=== PATIENT | male | born 1970 | race Two or more races ===

== ENCOUNTER 2020-04-23 06:18 | Outpatient (REF) | payer OTHER, SELFPAY ==
[2020-04-23 11:50] LABS: Estimated Average Glucose 192 mg/dL; Hemoglobin A1c % 8.3 %
[2020-04-23 12:07] LABS: Alanine Aminotransferase 18 U/L (0-40); Anion Gap 14 (12-20); Aspartate Amino Transferase 14 U/L (5-37); Blood Urea Nitrogen 13 mg/dL (9-16); Calcium 9.4 mg/dL (8.4-10.2); Carbon Dioxide 26 mmol/L (22-29); Chloride 105 mmol/L (96-108); Cholesterol 175 mg/dL; Estimated Glomerular Filt Rate > 60; Glucose Fasting 182 mg/dL (60-99); HDL Cholesterol 32 mg/dL; LDL Cholesterol Calculated 111 mg/dl; Potassium 4.8 mmol/l (3.3-5.1); Sodium 140 mmol/L (135-145); Triglycerides 160 mg/dL
== END 2020-04-23 06:19 | disposition home or self-care (01) ==
LOC: HO.HMGCLDS 06:18
PROVIDERS: PCP Internal Medicine; Visit Provider Internal Medicine
DX: E11.29 Type 2 diabetes mellitus with other diabetic kidney complication (principal); R80.9 Proteinuria, unspecified; Z79.4 Long term (current) use of insulin
CPT/HCPCS: 80048; 80061; 83036; 84450; 84460

== ENCOUNTER → 2020-05-22 13:23 | Outpatient (BNVA) | payer OTHER, SELFPAY | PROVIDERS: Visit Provider Nurse Practitioner Family | DX: Z76.89 Persons encountering health services in other specified circumstances (principal) ==

== ENCOUNTER 2020-07-31 05:59 | Outpatient (REF) | payer OTHER, SELFPAY ==
[2020-07-31 11:43] LABS: Estimated Average Glucose 283 mg/dL; Hemoglobin A1c % 11.5 %
[2020-07-31 11:51] LABS: Alanine Aminotransferase 14 U/L (0-40); Albumin Level 4.7 g/dL (3.5-5.0); Alkaline Phosphatase 118 U/L (39-117); Anion Gap 16 (12-20); Aspartate Amino Transferase 12 U/L (5-37); Bilirubin Direct 0.2 mg/dL (0.0-0.5); Bilirubin Total 0.6 mg/dL (0.0-1.0); Blood Urea Nitrogen 12 mg/dL (9-16); Calcium 9.6 mg/dL (8.4-10.2); Carbon Dioxide 25 mmol/L (22-29); Chloride 100 mmol/L (96-108); Cholesterol 194 mg/dL; Estimated Glomerular Filt Rate > 60; Glucose Fasting 269 mg/dL (60-99); HDL Cholesterol 29 mg/dL; LDL Cholesterol Calculated 117 mg/dl; Potassium 4.6 mmol/L (3.3-5.1); Sodium 136 mmol/L (135-145); Total Protein 7.9 g/dL (6.5-8.0); Triglycerides 242 mg/dL
[2020-07-31 12:11] LABS: PSA,Total (Free>4and<10) 1.19 ng/mL (0.00-4.00)
[2020-07-31 12:31] LABS: Creatinine Urine 111.52 mg/dL; Microalbum/Creatinine Ratio Ur 177.5 ug/mg cr
== END 2020-07-31 06:00 | disposition home or self-care (01) ==
LOC: HO.HMGCLDS 05:59
PROVIDERS: PCP Internal Medicine; Referring Provider Nurse Practitioner Family; Visit Provider Internal Medicine
DX: I10 Essential (primary) hypertension (principal); E78.2 Mixed hyperlipidemia; E11.29 Type 2 diabetes mellitus with other diabetic kidney complication; E11.65 Type 2 diabetes mellitus with hyperglycemia; Z79.4 Long term (current) use of insulin; Z12.5 Encounter for screening for malignant neoplasm of prostate
CPT/HCPCS: 36415; 80048; 80061; 80076; 82043; 83036; 84153

== ENCOUNTER 2020-08-14 09:24 | Day surgery (SDC) | payer OTHER, SELFPAY ==
--- NOTE | 2020-08-13 10:35 | HO.ANESPROP2 ---
Documented by User: Isauraher Trammellney 08/13/20 10:38 HPI - Anesthesia Eval Consult details Narrative: 50yo M for Colonoscopy PMFSH Active Problems Active Problems: All Active Problems (Updated 08/09/20 @ 14:17 by Jacey Israel) Exposure to COVID-19 virus (Acute) Mixed dyslipidemia (Acute) Type 2 diabetes mellitus with other diabetic kidney complication (Acute) Diabetes mellitus with hyperglycemia, with long-term current use of insulin (Acute) Essential hypertension (Acute) Past Medical History Medical History Diabetes mellitus with hyperglycemia, with long-term current use of insulin Essential hypertension Exposure to COVID-19 virus Mixed dyslipidemia Type 2 diabetes mellitus with other diabetic kidney complication Family History Family History Father No problems noted. Mother No problems noted. Paternal Grandfather Colon cancer Paternal Aunt Colon cancer Diabetes mellitus Brother No problems noted. Brother No problems noted. Sister No problems noted. Sister No problems noted. Sister No problems noted. Surgical History Surgical History Abdominal hernia History of nasal surgery Social History Social History Alcohol intake: never Smoking Status: Current every day smoker Tobacco Type: Cigarette Packs Per Day: 0.5 Cigarettes Per Day: 10.0 Years Smoked: 26 Smoked in Last 30 Days: Yes Patient Interested in Nicotine Replacement: Yes Patient Given Instructions on How to Stop Smoking: No Second Hand Smoke Exposure: Yes Use of substances other than those prescribed or required for medical reasons: No Advance Directives: No Advance Directives Information Provided: Yes Meds Allergies Allergy/AdvReac Type Severity Reaction Status Date / Time No Known Allergies Allergy Unknown Verified 08/07/20 10:23 [No Known Allergies*] Home Medications Medication Instructions Recorded Confirmed Last Taken Type aspirin 81 mg tablet,delayed 81 mg PO DAILY 04/24/20 08/09/20 Unknown History release flu vac [id number] 36mos up(PF) ml IM 04/24/20 04/24/20 Unknown History glipizide 10 mg tablet 10 mg PO ONCE tab 04/24/20 08/09/20 Unknown History lisinopril 10 mg tablet 10 mg PO DAILY 04/24/20 08/09/20 Unknown History pen needle, diabetic 32 gauge x #50 ea 04/24/20 04/24/20 Unknown History Exam Exam Date and Time: August 13, 2020 1035 Pertinent Lab Results Pertinent Lab Results: Laboratory Tests 07/31/20 06:11 Sodium 136 Potassium 4.6 Chloride 100 Carbon Dioxide 25 BUN 12 Creatinine 0.76 Assessment and Plan Assessment Anesthesia Assessment: Chart Reviewed Documented by User: Nadine Love 08/14/20 11:31 [facility] Past Medical History Medical History Diabetes mellitus with hyperglycemia, with long-term current use of insulin Essential hypertension Exposure to COVID-19 virus Mixed dyslipidemia Type 2 diabetes mellitus with other diabetic kidney complication Family History Family History Father No problems noted. Mother No problems noted. Paternal Grandfather Colon cancer Paternal Aunt Colon cancer Diabetes mellitus Brother No problems noted. Brother No problems noted. Sister No problems noted. Sister No problems noted. Sister No problems noted. Surgical History Surgical History Abdominal hernia History of nasal surgery Social History Social History Alcohol intake: never Smoking Status: Current every day smoker Tobacco Type: Cigarette Packs Per Day: 0.5 Cigarettes Per Day: 10.0 Years Smoked: 26 Smoked in Last 30 Days: Yes Patient Interested in Nicotine Replacement: Yes Patient Given Instructions on How to Stop Smoking: No Second Hand Smoke Exposure: Yes Use of substances other than those prescribed or required for medical reasons: No Advance Directives: No Advance Directives Information Provided: Yes Meds Allergies Allergy/AdvReac Type Severity Reaction Status Date / Time No Known Allergies Allergy Unknown Verified 08/07/20 10:23 [No Known Allergies*] Home Medications Medication Instructions Recorded Confirmed Last Taken Type aspirin 81 mg tablet,delayed 81 mg PO DAILY 04/24/20 08/09/20 Unknown History release flu vac [id number] 36mos up(PF) ml IM 04/24/20 04/24/20 Unknown History glipizide 10 mg tablet 10 mg PO ONCE tab 04/24/20 08/09/20 Unknown History lisinopril 10 mg tablet 10 mg PO DAILY 04/24/20 08/09/20 Unknown History pen needle, diabetic 32 gauge x #50 ea 04/24/20 04/24/20 Unknown History Exam Airway Mallampati Class: II TM Dist: >3cm Neck ROM: Full Heart: RRR Lungs: CTA
[2020-08-14 10:08] VITALS: BMI 25.8
[2020-08-14 10:22] VITALS: BP 139/85; PULSE 93; RESP 18; TEMP 36.2; O2SAT 97; BMI 25.8
[2020-08-14 10:28] LABS: Glucose, Whole Blood 244 mg/dL (60-115)
[2020-08-14] MEDS: Lactated Ringers 1,000 ML 100 ML IVCONT (10:38)
--- NOTE | 2020-08-14 10:39 | PC.NURSE ---
Breath sounds clear bilaterally
[2020-08-14] MEDS: Insulin Regular, Human 100 UNIT/ML 3 ML VIAL 6 UNIT SUBCUT (11:35)
--- NOTE | 2020-08-14 11:42 | MHC.SHP ---
Pre-Procedural Eval Section B Chief Complaint: screening Relevant Family History (Specify if Yes): No Relevant Social History: Tobacco Use Present Medications: see Short Stay Collaborative assessment Medical History: Significant History (Diabetes mellitus with hyperglycemia, with long-term current use of insulin Essential hypertension Exposure to COVID-19 virus Mixed dyslipidemia Type 2 diabetes mellitus with other diabetic kidney complication) History of Previous Operations: Relevant previous surgery/procedure and date(s) (hernia surgery) Allergies: Allergies Allergy/AdvReac Type Severity Reaction Status Date / Time No Known Allergies Allergy Unknown Verified 08/07/20 10:23 [No Known Allergies*] Review of Systems Sugical H&P ROS: Negative: Constitution, Cardiovascular, Respiratory, Neurological, Psychiatric, Hem-Onc, Allergic/Immunologic, Gastrointestinal, Genitourinary, Musculoskeletal, Integumentary, Endocrine and Eyes/Ears/Nose/Throat Exam Surgical H&P Exam: Normal: HEENT, Normal: Heart, Normal: Lungs, Normal: Extremities, Normal: Abdomen, Normal: Skin and Normal: Neurological Plan Diagnosis/Plan: Unchanged I have reviewed the history and physical and performed a pertinent physical examination on my patient. No changes have occurred unless specified.
--- NOTE | 2020-08-14 12:13 | P.OP_ITS ---
Operative Note Operative Note Date of Service: 08/14/20 Narrative: Operative Information Procedure Description: Colonoscopy COLONOSCOPY Instrument: Olympus variable stiffness pediatric scope 190L Colonoscopy Monitoring: Vital signs and clinical assessment, continuous EKG monitoring, Pulse oximetry, Carbon Dioxide monitoring and blood pressure monitoring were done throughout the procedure. Colon withdrawal time was 12 minutes. Procedure: The patient was placed in the left lateral decubitis position and pre-procedure medications were administered. After a digital rectal examination of the ano-rectum, the video colonoscope was inserted into the rectum and advanced through the colon to the cecum/TI. The colonoscope was slowly withdrawn in a retrograde panoramic fashion and the colon mucosa was carefully examined including a retroflexed view of the rectum. Findings and interventions are described below. Procedure Difficulty:moderate, looping, required pressure to get to cecum Findings: Terminal Ileum-normal Cecum:normal Ascending Colon: normal Transverse Colon -normal Descending Colon:normal Sigmoid Colon: normal Rectum: Retroflexion with moderate sized internal hemorrhoids, grade I Anorectum - normal Colon preparation: [place] Bowel Preparation Scale Right colon; 2 after cleaning Transverse colon: 2 Left colon; 1 (0 = Unprepared colon segment with mucosa not seen due to solid stool that cannot be cleared. 1 = Portion of mucosa of the colon segment seen, but other areas of the colon segment not well seen due to staining, residual stool and/or opaque liquid. 2 = Minor amount of residual staining, small fragments of stool and/or opaque liquid, but mucosa of colon segment seen well. 3 = Entire mucosa of colon segment seen well with no residual staining, small fragments of stool or opaque liquid) Impression and Post Procedure Diagnosis: internal hemorrhoids Plan: High fiber diet leaflet Avoid straining at stool, epsom salts and sitz bath, anusol supps or cream prn Repeat Colonoscopy in 1-2 years due to prep or earlier if clinically indicated Above findings were reviewed with the patient and relevant handouts were provided if indicated.
--- NOTE | 2020-08-14 12:13 | PM.OP ---
Brief Operative Note Date of Service: 08/14/20 Pre-op diagnosis: colon screening Post-op diagnosis: same Procedure: see op note Surgeon: Cas Talavera MD Anesthesia: MAC Estimated blood loss (mL): 0 Condition: stable Disposition: PACU
[2020-08-14 12:19] VITALS: BP 124/79; PULSE 89; RESP 16; TEMP 36.7; O2SAT 95
[2020-08-14 12:34] VITALS: BP 136/85; PULSE 86; RESP 18; O2SAT 97
[2020-08-14 12:48] LABS: Glucose, Whole Blood 161 mg/dL (60-115)
--- NOTE | 2020-08-14 12:52 | HO.POSTANES ---
Post Anesthesia Evaluation Post Anesthesia Evaluation Vital Signs: Vital Signs Temp Pulse Resp BP Pulse Ox 08/14/20 12:34 86 18 136/85 97 08/14/20 12:19 98.0 F 89 16 124/79 95 08/14/20 10:22 97.2 F 93 18 139/85 97 Anesthesia: Monitored Mental Status: Awake Pain Control: Satisfactory Nausea/Vomiting: None Hydration: Adequate Anesthesia-Related Issues: No Anes. Related Issues
== END 2020-08-14 13:12 | disposition home or self-care (01) ==
PROVIDERS: PCP Internal Medicine; Visit Provider Internal Medicine Gastroenterology
PROC: 0DJD8ZZ Inspection of Lower Intestinal Tract, Via Natural or Artificial Opening Endoscopic (ICD-10-PCS; CPT 45378; principal; 2020-08-14 11:00)
DX: Z12.11 Encounter for screening for malignant neoplasm of colon (principal); K64.0 First degree hemorrhoids; E11.65 Type 2 diabetes mellitus with hyperglycemia; E11.29 Type 2 diabetes mellitus with other diabetic kidney complication; N28.9 Disorder of kidney and ureter, unspecified; I10 Essential (primary) hypertension; F17.210 Nicotine dependence, cigarettes, uncomplicated; Z79.4 Long term (current) use of insulin; Z79.899 Other long term (current) drug therapy
CPT/HCPCS: 45378; 82947

== ENCOUNTER 2021-01-09 07:48 | Outpatient (REF) | payer OTHER, SELFPAY ==
[2021-01-09 11:41] LABS: Estimated Average Glucose 295 mg/dL; Hemoglobin A1c % 11.9 %
[2021-01-09 11:46] LABS: Alanine Aminotransferase 16 U/L (0-40); Anion Gap 15 (12-20); Aspartate Amino Transferase 15 U/L (5-37); Blood Urea Nitrogen 14 mg/dL (9-16); Calcium 9.5 mg/dL (8.4-10.2); Carbon Dioxide 24 mmol/L (22-29); Chloride 104 mmol/L (96-108); Cholesterol 222 mg/dL; Estimated Glomerular Filt Rate > 60; Glucose Fasting 239 mg/dL (60-99); HDL Cholesterol 29 mg/dL; LDL Cholesterol Calculated 118 mg/dl; Potassium 4.5 mmol/L (3.3-5.1); Sodium 138 mmol/L (135-145); Triglycerides 377 mg/dL
[2021-01-10 08:09] LABS: SARS COV2 IgG Negative (Negative)
== END 2021-01-09 07:49 | disposition home or self-care (01) ==
LOC: HO.HMGCLDS 07:48
PROVIDERS: PCP Internal Medicine; Visit Provider Internal Medicine
DX: E11.29 Type 2 diabetes mellitus with other diabetic kidney complication (principal); E11.65 Type 2 diabetes mellitus with hyperglycemia; E78.2 Mixed hyperlipidemia; I10 Essential (primary) hypertension; Z12.5 Encounter for screening for malignant neoplasm of prostate; Z79.4 Long term (current) use of insulin; Z20.822 Contact with and (suspected) exposure to COVID-19
CPT/HCPCS: 36415; 80048; 80061; 83036; 84450; 84460; 86769

== ENCOUNTER 2021-05-17 08:50 | Outpatient (REF) | payer OTHER, SELFPAY ==
[2021-05-17 11:18] LABS: Estimated Average Glucose 240 mg/dL
[2021-05-17 11:19] LABS: Alanine Aminotransferase 22 U/L (0-40); Anion Gap 16 (12-20); Aspartate Amino Transferase 17 U/L (5-37); Blood Urea Nitrogen 13 mg/dL (9-16); Calcium 10.1 mg/dL (8.4-10.2); Carbon Dioxide 26 mmol/L (22-29); Chloride 102 mmol/L (96-108); Cholesterol 187 mg/dL; Estimated Glomerular Filt Rate > 60; Glucose Fasting 252 mg/dL (60-99); HDL Cholesterol 28 mg/dL; LDL Cholesterol Calculated 97 mg/dl; Potassium 4.6 mmol/L (3.3-5.1); Sodium 139 mmol/L (135-145); Triglycerides 311 mg/dL
[2021-05-17 11:44] LABS: TSH reflex Free T4 1.82 uIU/mL (0.32-4.0)
== END 2021-05-17 08:51 | disposition home or self-care (01) ==
LOC: HO.HMGCLDS 08:50
PROVIDERS: PCP Internal Medicine; Visit Provider Internal Medicine
DX: Z00.01 Encounter for general adult medical examination with abnormal findings (principal); E11.29 Type 2 diabetes mellitus with other diabetic kidney complication; E78.2 Mixed hyperlipidemia; I10 Essential (primary) hypertension; Z83.49 Family history of other endocrine, nutritional and metabolic diseases
CPT/HCPCS: 36415; 80048; 80061; 83036; 84443; 84450; 84460

== ENCOUNTER 2021-08-25 06:03 | Outpatient (REF) | payer OTHER, SELFPAY ==
[2021-08-25 12:19] LABS: Alanine Aminotransferase 19 U/L (0-40); Anion Gap 15 (12-20); Aspartate Amino Transferase 13 U/L (5-37); Blood Urea Nitrogen 14 mg/dL (9-16); Calcium 9.6 mg/dL (8.4-10.2); Carbon Dioxide 24 mmol/L (22-29); Chloride 101 mmol/L (96-108); Cholesterol 185 mg/dL; Estimated Glomerular Filt Rate > 60; Glucose Fasting 288 mg/dL (60-99); HDL Cholesterol 31 mg/dL; LDL Cholesterol Calculated 111 mg/dl; Potassium 4.7 mmol/L (3.3-5.1); Sodium 135 mmol/L (135-145); Triglycerides 215 mg/dL
[2021-08-25 12:25] LABS: Estimated Average Glucose 263 mg/dL; Hemoglobin A1c % 10.8 %
== END 2021-08-25 06:04 | disposition home or self-care (01) ==
LOC: HO.HMGCLDS 06:03
PROVIDERS: Visit Provider Internal Medicine
DX: E78.2 Mixed hyperlipidemia (principal); E11.29 Type 2 diabetes mellitus with other diabetic kidney complication; E11.65 Type 2 diabetes mellitus with hyperglycemia; I10 Essential (primary) hypertension; Z79.4 Long term (current) use of insulin
CPT/HCPCS: 36415; 80048; 80061; 83036; 84450; 84460

== ENCOUNTER → 2022-02-26 07:54 | Outpatient (BNVA) | payer OTHER, SELFPAY | PROVIDERS: PCP Internal Medicine; Visit Provider Internal Medicine Endocrinology, Diabetes & Metabolism | DX: E11.29 Type 2 diabetes mellitus with other diabetic kidney complication (principal); Z79.84 Long term (current) use of oral hypoglycemic drugs | CPT/HCPCS: 82043; 82947; 99202 ==

== ENCOUNTER 2022-02-26 09:00 | Outpatient (REF) | payer OTHER, SELFPAY ==
[2022-02-26 11:36] LABS: Creatinine Urine 66.28 mg/dL; Microalbum/Creatinine Ratio Ur 196.1 ug/mg cr
== END 2022-02-26 09:01 | disposition home or self-care (01) ==
LOC: HO.10HDL 09:00
PROVIDERS: Visit Provider Internal Medicine Endocrinology, Diabetes & Metabolism
DX: Z13.89 Encounter for screening for other disorder (principal)
CPT/HCPCS: 82043; 99202

== ENCOUNTER → 2022-03-19 14:36 | Outpatient (BNVA) | payer OTHER, SELFPAY | PROVIDERS: PCP Internal Medicine; Visit Provider Registered Nurse Diabetes Educator | DX: E11.29 Type 2 diabetes mellitus with other diabetic kidney complication (principal) | CPT/HCPCS: 99211 ==

== ENCOUNTER 2022-04-13 06:13 | Outpatient (REF) | payer OTHER, SELFPAY ==
[2022-04-13 12:01] LABS: Creatinine Urine 185.68 mg/dL; Microalbum/Creatinine Ratio Ur 113.6 ug/mg cr
[2022-04-13 12:04] LABS: Alanine Aminotransferase 17 U/L (0-40); Albumin Level 4.8 g/dL (3.5-5.0); Alkaline Phosphatase 98 U/L (39-117); Anion Gap 19 (12-20); Aspartate Amino Transferase 14 U/L (5-37); Bilirubin Total 0.5 mg/dL (0.0-1.0); Blood Urea Nitrogen 17 mg/dL (9-16); Calcium 9.6 mg/dL (8.4-10.2); Carbon Dioxide 20 mmol/L (22-29); Chloride 103 mmol/L (96-108); Cholesterol 162 mg/dL; Estimated Glomerular Filt Rate > 60; Glucose Fasting 256 mg/dL (60-99); HDL Cholesterol 32 mg/dL; LDL Cholesterol Calculated 98 mg/dl; Potassium 4.6 mmol/L (3.3-5.1); Sodium 137 mmol/L (135-145); Total Protein 7.7 g/dL (6.5-8.0); Triglycerides 160 mg/dL
[2022-04-13 12:29] LABS: Estimated Average Glucose 252 mg/dL; Hemoglobin A1c % 10.4 %
== END 2022-04-13 06:14 | disposition home or self-care (01) ==
LOC: HO.HMGCLDS 06:13
PROVIDERS: PCP Internal Medicine; Visit Provider Internal Medicine
DX: E11.29 Type 2 diabetes mellitus with other diabetic kidney complication (principal); E78.2 Mixed hyperlipidemia; I10 Essential (primary) hypertension
CPT/HCPCS: 36415; 80053; 80061; 82043; 83036

== ENCOUNTER → 2022-05-14 11:55 | Outpatient (BNVA) | payer OTHER, SELFPAY | PROVIDERS: PCP Internal Medicine; Visit Provider Registered Nurse Diabetes Educator | DX: E11.29 Type 2 diabetes mellitus with other diabetic kidney complication (principal) | CPT/HCPCS: 99211 ==

== ENCOUNTER → 2022-07-02 14:09 | Outpatient (BNVA) | payer OTHER, SELFPAY | PROVIDERS: PCP Internal Medicine; Visit Provider Internal Medicine Endocrinology, Diabetes & Metabolism | DX: E11.29 Type 2 diabetes mellitus with other diabetic kidney complication (principal); Z79.84 Long term (current) use of oral hypoglycemic drugs | CPT/HCPCS: 82947; 83036; 99212 ==

== ENCOUNTER 2022-08-13 12:44 | Outpatient (REF) | payer OTHER, SELFPAY ==
--- NOTE | ~2022-08-13 | XR_ITS ---
EXAMINATION: XR SHOULDER, RIGHT CLINICAL INFORMATION: Right shoulder pain COMPARISON: None TECHNIQUE: AP external rotation, Grashey, scapular Y, and axillary views of the right shoulder. FINDINGS: The bones and soft tissues are normal. No fracture. Glenohumeral and acromioclavicular alignment is anatomic with normal joint space. No abnormal soft tissue calcifications. XR/XR shoulder RT min 2V IMPRESSION: Normal right shoulder.
== END 2022-08-13 12:45 | disposition home or self-care (01) ==
LOC: HO.HOSX 12:44
PROVIDERS: Visit Provider Physician Assistant
DX: G56.21 Lesion of ulnar nerve, right upper limb (principal); M75.101 Unspecified rotator cuff tear or rupture of right shoulder, not specified as traumatic
CPT/HCPCS: 20610; 73030; 99202; J1020

== ENCOUNTER 2022-08-20 14:31 | Outpatient (AMB) | payer OTHER, SELFPAY ==
--- NOTE | 2022-08-20 14:56 | A.OFFPC_ITS ---
Vital Signs 08/20/22 15:10 Height 5 ft 8 in Weight 170 lb BMI 25.8 BP 110/52 L Blood Pressure Location Lt brachial Position Sitting Pulse 98 Pulse Source Pulse Oximeter Intake Visit Reasons: follow lipids,HTN Intake Note: Pt is here today to f/u HTN Allergies No Known Allergies [No Known Allergies*] Allergy (Unknown, Verified 02/18/23 18:03) Medication List - Last Reconciled 08/20/22 by Allegra Londono MD aspirin 81 mg PO DAILY atorvastatin 40 mg PO DAILY blood sugar diagnostic (FreeStyle Lite Strips) Check fasting blood sugar twice a day a.m. and p.m. blood-glucose meter (FreeStyle Lite Meter kit) Check fasting blood sugar twice a day lancets (Easy Touch Safety Lancets) As directed liraglutide (Victoza 3-Phil) 0.6 mg (0.1 mL) subcut DAILY lisinopril 10 mg PO DAILY metformin 1,000 mg PO .Twice a day with raul 30 days omeprazole 20 mg PO DAILY pen needle, diabetic (BD Ultra-Fine Mini Pen Needle) use once a day As directed Tobacco use date assessed: 08/20/22 HPI follow lipids,HTN HPI Details 52-year-old male with poorly controlled diabetes mellitus with kidney complications, followed by endocrine clinic, here today for follow-up on his hypertension and dyslipidemia. He is currently taking lisinopril 10 mg daily and atorvastatin 40 mg once a day. Unfortunately continues to smoke cigarettes with no desire to quit at present time. Denies any headache, no chest pain or shortness of breath, no lightheadedness reported. [facility] Medical History Numbness and tingling of right arm Noncompliance w/medication treatment due to intermit use of medication Smoker unmotivated to quit Family history of thyroid disease Exposure to COVID-19 virus Mixed dyslipidemia Type 2 diabetes mellitus with other diabetic kidney complication Essential hypertension Surgical History History of nasal surgery Abdominal hernia Family History Father No problems noted. Mother No problems noted. Paternal Grandfather Colon cancer Paternal Aunt Colon cancer Diabetes mellitus Brother No problems noted. Brother No problems noted. Sister No problems noted. Sister No problems noted. Sister No problems noted. Social History Household Members: None Housing: House Alcohol intake: never Patient Tobacco Use Status: Current everyday Tobacco user Tobacco use type: Cigarette Cigarette Packs Per Day: 0.5 Cigarettes Per Day: 10.0 Years Smoked: 26 e-Cigarette/Vaping Use: Never Used Second Hand Smoke Exposure: Yes service: No Current occupational status: employed Cognitive needs: No Hearing needs: No Vision needs: No Questionnaire PHQ-9 Over the last 2 weeks, how often have you been bothered by any of the following problems? Depression Screening Interpretation: Negative Source: Developed by Drs. Rm Aguirre, Mirta Mckenzie, Paul Gonzales and colleagues, with an educational junior from [employer]. Thrive Questionnaire Date Thrive assessed: 08/27/21 AUDIT C Alcohol Use Questionnaire (AUDIT-C) 1. How often do you have a drink containing alcohol?: Never Total Score: 0 SARATH-7 AMB Questionnaire SARATH-7 Date SARATH - 7 assessed: 04/16/22 Source: Developed by Drs. Rm Aguirre, Mirta Mckenzie, Paul Gonzales and colleagues, with an educational junior from [employer]. Review of Systems Const Reports difficulty sleeping, Reports fatigue, Denies fever(s), Denies headache(s), Denies lethargy and Denies malaise Eyes Denies change in vision ENT Reports Normal hearing present, Denies dizziness, Denies dry mouth and Denies headache(s) Card Denies chest pain, Denies rapid heart rate, Denies lightheadedness and Denies dyspnea Resp Denies chest congestion, Denies cough and Denies dyspnea GI Denies abdominal pain, Denies belching, Denies melena, Denies bloating, Denies change in bowel habits, Denies dyspepsia, Denies heartburn and Denies nausea Denies difficulty urinating, Reports erectile dysfunction, Denies dysuria and Denies penile discharge Musc Denies stiffness Neuro Reports no additional complaints, Reports Normal hearing present, Denies dizziness, Denies headache(s), Denies Sensory deficit (Neuro) and Denies paresthesias Endo Reports fatigue, Reports polydipsia and Reports polyuria Osvaldo/Lymph Reports no additional complaints Aller/Immun Reports no additional complaints Physical exam (Primary Care) Vital Signs: Last Vital Signs Pulse 98 08/20/22 15:10 BP 110/52 L 08/20/22 15:10 BMI result Body Mass Index 25.8 Tobacco/Smoking Status: Tobacco use Status Tobacco use date assessed 08/20/22 08/20/22 14:57 Patient Tobacco Use Status Current everyday Tobacco 08/20/22 14:57 Tobacco use type Cigarette 08/20/22 14:57 e-Cigarette/Vaping Use Never Used 08/20/22 14:57 Are you ready to quit: No Depression Screening Interpretation: Negative Thrive Assessment: Date of Thrive Assessment Date Thrive assessed 08/27/21 08/20/22 14:57 Const Other: Alert oriented x3, no acute distress noted, ambulatory normal gait Orientation/consciousness: patient oriented x3 HENMT Mouth: Normal oral and palatal mucosa present, oropharynx normal and moist mucous membranes Eyes General: appearance normal, both eyes and all related structures Neck Neck: Yes full ROM, Yes no lymphadenopathy and Yes supple Resp Auscultation: clear to auscultation bilaterally Cardio Other: S1-S2 present regular rate and rhythm GI Palpation (GI): Soft to palpation, nontender, no guarding and no masses General: Yes no CVA tenderness Back/Spine/Pelvis Back: no CVA tenderness and No back tenderness Skin General skin exam: no rashes or lesions noted Neuro General: patient oriented x3, gait normal, tone normal, moves all extremities, Normal light touch and pain sensation, no focal motor deficits, CN's II-XI intact bilaterally and normal sensation to monofilament Cranial nerves: Yes Normal hearing present Sensory Exam: No Sensory deficit (Neuro) Extrem General: Yes full ROM, Yes no joint enlargement, Yes no pedal edema and Yes n ormal gait Assessment and Plan Assessment & Plan (1) Mixed dyslipidemia: Code(s): E78.2 - Mixed hyperlipidemia Plan: Will continue on atorvastatin 40 mg daily , fasting lipids ordered today reinforced importance of following a low-cholesterol diet and getting regular exercise. (2) Essential hypertension: Code(s): I10 - Essential (primary) hypertension Plan: Blood pressure at goal of less than 130/80. Continue with lisinopril 10 mg daily. Reinforced importance of following a low sodium diet, getting regular exercise, and lowering stress levels. (3) Smoker unmotivated to quit: Code(s): F17.200 - Nicotine dependence, unspecified, uncomplicated Plan: Patient strongly advised to stop smoking, as smoking damages blood vessels, degenerative of joints and spine, damage to lungs and heart., predisposes to developing certain cancers like lung, breast, bladder, colon. Recommended to try decreasing cigarette use by 1-2 cigarettes a day. Advised to monitor what triggers are for smoking so that this can be discussed on the next office visit. We can discuss different options to quit smoking when ready. Orders: Orders Lipid Panel 08/20/22 E78.2 - Mixed hyperlipidemia Alanine Aminotransferase 08/20/22 E78.2 - Mixed hyperlipidemia Aspartate Amino Transferase 08/20/22 E78.2 - Mixed hyperlipidemia Coding Level of Care Code Est Pt Level 3 (59696) Diagnoses Mixed dyslipidemia E78.2 Essential hypertension I10 Smoker unmotivated to quit F17.200
[2022-08-20 15:10] VITALS: BP 110/52; PULSE 98; BMI 25.8
== END 2022-08-20 16:08 | disposition home or self-care (01) ==
LOC: HO.HMGC 14:31
PROVIDERS: PCP Internal Medicine; Visit Provider Internal Medicine
DX: E78.2 Mixed hyperlipidemia (principal); I10 Essential (primary) hypertension; F17.200 Nicotine dependence, unspecified, uncomplicated
CPT/HCPCS: 99213

== ENCOUNTER → 2022-10-01 08:31 | Outpatient (BNVA) | payer OTHER, SELFPAY | PROVIDERS: PCP Internal Medicine; Visit Provider Internal Medicine Endocrinology, Diabetes & Metabolism | DX: E11.29 Type 2 diabetes mellitus with other diabetic kidney complication (principal) | CPT/HCPCS: 82947; 83036; 99212 ==

== ENCOUNTER 2022-10-08 11:59 | Outpatient (REF) | payer OTHER, SELFPAY ==
--- NOTE | 2022-10-08 08:00 | EMG_ITS ---
Right median and ulnar motor and sensory studies were obtained. Right radial sensory study was obtained and paraspinal muscles were tested with a needle. IMPRESSION: 1. Sord-jr-gquuhrea right median neuropathy across carpal tunnel. 2. Mild right ulnar neuropathy across cubital tunnel. MD ELVIN Chew/JAMEL / [id number]
== END 2022-10-08 12:00 | disposition home or self-care (01) ==
LOC: HO.NEURO 11:59
PROVIDERS: PCP Internal Medicine; Referring Provider Physician Assistant; Visit Provider Internal Medicine
DX: R20.0 Anesthesia of skin (principal); R20.2 Paresthesia of skin
CPT/HCPCS: 95886; 95909

== ENCOUNTER 2022-12-24 09:03 | Outpatient (AMB) | payer OTHER, SELFPAY ==
[2022-12-24 09:19] VITALS: BP 128/74; PULSE 98; O2SAT 99; BMI 26.1
--- NOTE | 2022-12-24 09:19 | MHC.OFFVIS ---
Intake Vital Signs 12/24/22 09:19 Height 5 ft 8 in Weight 171 lb 15.369 oz BMI 26.1 BP 128/74 Blood Pressure Location Lt brachial Position Sitting Pulse 98 Pulse Source Pulse Oximeter Pulse Oximetry (%) 99 Intake Visit Reasons: Diabetes Type 2 Intake Note: Patient present today to follow up on Type 2 Diabetes Mellitus. Last Diabetic Eye exam: 06/18/2022 Last Podiatry Visit: 06/25/2022 Random Glucose:237 mg/dl HgA1C: DUE Imaging Tech Required: No Accompanied by: Self / Same As Patient Allergies No Known Allergies [No Known Allergies*] Allergy (Unknown, Verified 12/24/22 09:19) Do you need a note to return to daycare/school/sports/work: No HPI HPI Comments History of Present Illness Details 52 YO M who is seen in consultation for T2DM at the request of PCP. Initially diagnosed with T2DM in since 2006. Was initially started on treatment with metformin. He had taken Jardiance and glipizide but was not compliant according to PCP. Trulicity caused nausea Current regimen metformin 1000 mg BID. Ozempic mg QD stopped because of nausea . had to stop Trulicity because of GI side effects Took Lantus in past Took Jardiance with yeast inection Does not Checks sugars regularly . There are 34blood sugars present glucometer glucometer download shows she is checking his point cares sporadically and only in the a.m.. Average glucose is 185. Ranges 169 to 200. 50% range with 50% hyperglycemia and no hypoglycemia He states he has difficulty manipulating the glucometer and cannot perform fingersticks Family history of T2DM in cousins on both sides has Type 2 and brother has Type 2 DM. Has eyes checked yearly, last eye exam appt in 06/2022 , denies retinopathy. Denies neuropathy, last foot exam ,does not sees podiatry. Denies nephropathy, On KARTHIK/ARB. UAC as measured on []. Has HLD, on statin. Denies CAD. Had diabetes education but not recently . [facility] Medical History Essential hypertension Exposure to COVID-19 virus Family history of thyroid disease Mixed dyslipidemia Noncompliance w/medication treatment due to intermit use of medication Numbness and tingling of right arm Smoker unmotivated to quit Type 2 diabetes mellitus with other diabetic kidney complication Surgical History Abdominal hernia History of nasal surgery Family History Father No problems noted. Mother No problems noted. Paternal Grandfather Colon cancer Paternal Aunt Colon cancer Diabetes mellitus Brother No problems noted. Brother No problems noted. Sister No problems noted. Sister No problems noted. Sister No problems noted. Social History Household Members: None Housing: House Alcohol intake: never Patient Tobacco Use Status: Current everyday Tobacco user Tobacco use type: Cigarette Cigarette Packs Per Day: 0.5 Cigarettes Per Day: 10.0 Years Smoked: 26 e-Cigarette/Vaping Use: Never Used Second Hand Smoke Exposure: Yes service: No Current occupational status: employed Cognitive needs: No Hearing needs: No Vision needs: No Physical Exam Vital Signs: Last Vital Signs Pulse 98 12/24/22 09:19 BP 128/74 12/24/22 09:19 Pulse Ox 99 12/24/22 09:19 BMI result Body Mass Index 26.1 Absence of Cushingoid features. Absence of acromegalic features. Neck exam reveals nl size thyroid about 15 gms. No thyroid nodules palpable. No carotid bruits present. Lungs CTA. Heart S1 S2, Reg R/R. No M/R/ G. Skin exam reveals absence of vitiligo but presence of acanthosis nigricans. Abdominal exam reveals Soft NT/ND with NA BS. No organomegaly present. Neck Other: . Extrem Other: Visual exam of foot performed. No ulcerations or open lesions. No onchomycosis, no callouses.Pulses 2 + distally Sensation i decreased to monofilament exam. Vibratory sensation sensed is decreased with 128 Hz tuning fork Results AMB Hemoglobin A1c AMB Hemoglobin A1c 8.1 % Last Edit by Jose R Pineda CMA on 12/24/22 09:39 Results Reviewed Results Reviewed: 12/24/22 09:26 Glucose, Whole Blood Routine Laboratory Last Values Glucose (Clinic) 237 mg/dL (60-115) H 12/24/22 09:26 Assessment & Plan Assessment & Plan (1) Type 2 diabetes mellitus with other diabetic kidney complication: Comment: Noncompliance with taking Jardiance and glipizide, no exercise Code(s): E11.29 - Type 2 diabetes mellitus with other diabetic kidney complication Plan: This is a 51-year-old male with a history of type 2 diabetes being treated with metformin with poor glycemic control and known microvascular complications namely micro albuminuria. He was not able to tolerate Victoza, Trulicity or Ozempic in the past but is willing to try Mounjaro. He also had adverse reactions to SGLT 2 inhibitor Plan is start Mounjaro 2.5 mg Q weekly and titrate as tolerated. Went over side effects of Mounjaro including but not limited to nausea, vomiting rare risk of pancreatitis. Mounjaro samples given to patient 2.5 mg lot number [id number] A expiration date 05/18/2024 Orders: Orders AMB Hemoglobin A1c Today E11.29 - Type 2 diabetes mellitus with other diabetic kidney complication, Z13.9 - Encounter for screening, unspecified Medications: New tirzepatide (Mounjaro) 2.5 mg (0.5 mL) subcut QWEEK 4 weeks 2 mL 0RF Refilled blood sugar diagnostic (FreeStyle Lite Strips) Check fasting blood sugar twice a day a.m. and p.m. 100 ea 8RF E11.29 - Type 2 diabetes mellitus with other diabetic kidney complication, E11.65 - Type 2 diabetes mellitus with hyperglycemia, Z79.4 - buttermaker continuous churn (current) use of insulin lancets (Easy Touch Safety Lancets) As directed 100 ea 0RF E11.29 - Type 2 diabetes mellitus with other diabetic kidney complication, E11.65 - Type 2 diabetes mellitus with hyperglycemia, Z79.4 - alf (current) use of insulin Discontinued blood-glucose meter (FreeStyle Lite Meter kit) Discontinued Reason: Doctor's Order Check fasting blood sugar twice a day 1 ea 0RF E11.29 - Type 2 diabetes mellitus with other diabetic kidney complication, E11.65 - Type 2 diabetes mellitus with hyperglycemia, Z79.4 - buttermaker continuous churn (current) use of insulin flash glucose scanning reader (FreeStyle Key 2 [place]) Discontinued Reason: Doctor's Order As directed 1 ea 0RF Coding Level of Care Code Est Pt Level 4 (66926) Diagnoses Type 2 diabetes mellitus with other diabetic kidney complication E11.29
[2022-12-24 09:33] LABS: Glucose, Whole Blood 237 mg/dL (60-115)
== END 2022-12-24 10:10 | disposition home or self-care (01) ==
PROVIDERS: PCP Internal Medicine; Visit Provider Internal Medicine Endocrinology, Diabetes & Metabolism
DX: E11.29 Type 2 diabetes mellitus with other diabetic kidney complication (principal); Z13.1 Encounter for screening for diabetes mellitus
CPT/HCPCS: 99214

== ENCOUNTER → 2022-12-24 09:03 | Outpatient (BNVA) | payer OTHER, SELFPAY | PROVIDERS: Visit Provider Internal Medicine Endocrinology, Diabetes & Metabolism | DX: E11.29 Type 2 diabetes mellitus with other diabetic kidney complication (principal); Z79.84 Long term (current) use of oral hypoglycemic drugs | CPT/HCPCS: 82947; 83036; 99212 ==

== ENCOUNTER 2023-07-15 07:42 | Outpatient (REF) | payer BC, SELFPAY ==
[2023-07-15 12:19] LABS: Alanine Aminotransferase 17 U/L (0-40); Aspartate Amino Transferase 16 U/L (5-37); Cholesterol 175 mg/dL (<200); HDL Cholesterol 33 mg/dL (>40); LDL Cholesterol Calculated 84 mg/dL (<100); Triglycerides 294 mg/dL (<150)
== END 2023-07-15 07:43 | disposition home or self-care (01) ==
LOC: HO.HMGCLDS 07:42
PROVIDERS: PCP Internal Medicine; Visit Provider Internal Medicine
DX: E78.2 Mixed hyperlipidemia (principal)
CPT/HCPCS: 36415; 80061; 84450; 84460

== ENCOUNTER 2023-09-13 05:59 | Outpatient (REF) | payer BC, SELFPAY ==
[2023-09-13 07:48] LABS: Creatinine Urine 132.51 mg/dL; Microalbum/Creatinine Ratio Ur 106.4 ug/mg cr (<30)
== END 2023-09-13 06:00 | disposition home or self-care (01) ==
LOC: HO.LAB 05:59
PROVIDERS: PCP Internal Medicine; Visit Provider Internal Medicine Endocrinology, Diabetes & Metabolism
DX: E11.29 Type 2 diabetes mellitus with other diabetic kidney complication (principal)
CPT/HCPCS: 82043; 82570

== ENCOUNTER 2023-09-16 08:40 | Outpatient (AMB) | payer BC, SELFPAY ==
--- NOTE | 2023-09-16 08:48 | A.OFFVIS_ITS ---
Intake Vital Signs 09/16/23 08:53 Height 5 ft 8 in Weight 176 lb 9.444 oz BMI 26.8 BP 104/60 Blood Pressure Location Rt brachial Position Sitting Pulse 93 Pulse Source Pulse Oximeter Intake Visit Reasons: DM-lvm Intake Note: Patient presents today to follow up on D2MT. 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 and p.m. empagliflozin (Jardiance) 10 mg PO DAILY lancets (Easy Touch Safety Lancets) As directed. check blood glucose twice a day AM and PM lancets (FreeStyle Lancets) As directed checks 4 times a day lisinopril 10 mg PO DAILY metformin 1,000 mg PO BID omeprazole 20 mg PO DAILY pen needle, diabetic (BD Ultra-Fine Mini Pen Needle) use once a day As directed tirzepatide (Mounjaro) 2.5 mg (0.5 mL) subcut QWEEK HPI HPI Comments History of Present Illness Details 53 YO M who is seen in consultation for T2DM at the request of PCP. Initially diagnosed with T2DM in since 2006. Was initially started on treatment with metformin. He had taken Jardiance and glipizide but was not compliant according to PCP. Trulicity caused nausea Current regimen metformin 1000 mg BID. Mounjaro 2.5 mg Qwkly Took Lantus in past Took Jardiance 10 mg QD not taking Does not Checks sugars regularly . There are 4 blood sugars present glucometer glucometer download shows she is checking his point cares sporadically . There were only 5 glucoses in the meter He states he has difficulty manipulating the glucometer and cannot perform fingersticks Family history of T2DM in cousins on both sides has Type 2 and brother has Type 2 DM. Has eyes checked yearly, last eye exam appt in 09/2023 , denies retinopathy. Denies neuropathy, last foot exam ,does not sees podiatry. Denies nephropathy, On KARTHIK/ARB. UAC as measured on []. Has HLD, on statin. Denies CAD. Had diabetes education but not recently . [facility] Medical History Numbness and tingling of right arm Noncompliance w/medication treatment due to intermit use of medication Smoker unmotivated to quit Family history of thyroid disease Exposure to COVID-19 virus Mixed dyslipidemia Type 2 diabetes mellitus with other diabetic kidney complication Essential hypertension Surgical History History of nasal surgery Abdominal hernia Family History Father No problems noted. Mother No problems noted. Paternal Grandfather Colon cancer Paternal Aunt Colon cancer Diabetes mellitus Brother No problems noted. Brother No problems noted. Sister No problems noted. Sister No problems noted. Sister No problems noted. Social History Household Members: None Housing: House Alcohol intake: never Patient Tobacco Use Status: Current everyday Tobacco user Tobacco use type: Cigarette Cigarette Packs Per Day: 0.5 Cigarettes Per Day: 10.0 Years Smoked: 26 e-Cigarette/Vaping Use: Never Used Second Hand Smoke Exposure: Yes service: No Current occupational status: employed Cognitive needs: No Hearing needs: No Vision needs: No Physical Exam Vital Signs: Last Vital Signs Pulse 93 09/16/23 08:53 BP 104/60 09/16/23 08:53 BMI result Body Mass Index 26.8 Absence of Cushingoid features. Absence of acromegalic features. Neck exam reveals nl size thyroid about 15 gms. No thyroid nodules palpable. No carotid bruits present. Lungs CTA. Heart S1 S2, Reg R/R. No M/R/ G. Skin exam reveals absence of vitiligo but presence of acanthosis nigricans. Abdominal exam reveals Soft NT/ND with NA BS. No organomegaly present. Neck Other: . Extrem Other: Visual exam of foot performed. No ulcerations or open lesions. No onchomycosis, no callouses.Pulses 2 + distally Sensation i decreased to monofilament exam. Vibratory sensation sensed is decreased with 128 Hz tuning fork Results AMB Hemoglobin A1c AMB Hemoglobin A1c 12.3 % Last Edit by CHELSIE Villarreal on 09/16/23 09:17 Results Reviewed Results Reviewed: Laboratory Last Values Glucose (Clinic) 274 mg/dL (60-115) H 09/16/23 08:59 Assessment & Plan Assessment & Plan (1) Type 2 diabetes mellitus with other diabetic kidney complication: Comment: Noncompliance with taking Jardiance and glipizide, no exercise Code(s): E11.29 - Type 2 diabetes mellitus with other diabetic kidney complication Plan: This is a 51-year-old male with a history of type 2 diabetes being treated with metformin with poor glycemic control and known microvascular complications namely micro albuminuria. . He also had adverse reactions to SGLT 2 inhibitor Plan is re-start a sensor namely Key and initiate Lantus 20 units in addition to titrating the Mounjaro to 5 mg Qwkly. He will meet with the health educator next week to initiate Key and to review how to take the insulin. We again went over the correlation of poor glycemic control to development and progression accomplishing Orders: Orders AMB Hemoglobin A1c Today E11.29 - Type 2 diabetes mellitus with other diabetic kidney complication Medications: New blood-glucose sensor (FreeStyle Key 3 Sensor device) As directed - change every 14 days 2 ea 4RF blood-glucose meter,continuous (FreeStyle Key 3 [place]) As directed 1 ea 0RF insulin glargine (Lantus Solostar U-100 Insulin) 20 units (0.2 mL) subcut QAM 30 mL 5RF Refilled pen needle, diabetic (BD Ultra-Fine Mini Pen Needle) use once a day As directed 50 ea 2RF E11.29 - Type 2 diabetes mellitus with other diabetic kidney complication, E11.65 - Type 2 diabetes mellitus with hyperglycemia, 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
[2023-09-16 08:53] VITALS: BP 104/60; PULSE 93; BMI 26.8
[2023-09-16 09:03] LABS: Glucose, Whole Blood 274 mg/dL (60-115)
== END 2023-09-16 09:41 | disposition home or self-care (01) ==
PROVIDERS: PCP Internal Medicine; Visit Provider Internal Medicine Endocrinology, Diabetes & Metabolism
DX: E11.29 Type 2 diabetes mellitus with other diabetic kidney complication (principal)
CPT/HCPCS: 99214

== ENCOUNTER → 2023-09-16 08:40 | Outpatient (BNVA) | payer BC, SELFPAY | PROVIDERS: PCP Internal Medicine; Visit Provider Internal Medicine Endocrinology, Diabetes & Metabolism | DX: E11.29 Type 2 diabetes mellitus with other diabetic kidney complication (principal); E11.65 Type 2 diabetes mellitus with hyperglycemia; Z79.4 Long term (current) use of insulin | CPT/HCPCS: 82947; 83036 ==

== ENCOUNTER 2024-01-20 10:34 | Outpatient (AMB) | payer BC, SELFPAY ==
--- NOTE | 2024-01-20 10:57 | MHC.OFFVIS ---
Vital Signs 01/20/24 10:58 Height 5 ft 8 in Weight 175 lb BMI 26.6 BP 102/58 L Blood Pressure Location Rt brachial Position Sitting Pulse 92 Pulse Source Pulse Oximeter Intake Visit Reasons: Type 2 diabetes/confirmed? Intake Note: Patient presents today to re-establish treatment for Type 2 Diabetes Mellitus: Last Diabetic Eye exam: [facility], 09/06/2023 Last Podiatry Exam: Does not see a Software Educator Most recent HbA1c: 12.2% Random Glucose- 224 mg/dL Director Corporate Required: No Accompanied by: Self / Same As Patient Allergies No Known Allergies [No Known Allergies*] Allergy (Unknown, Verified 01/20/24 11:04) HPI Comments Details: 53 YO M who is seen in f/u for T2DM. He was last seen by Dr. Anthony o09/28. Most recent A1C was 12.2% today in the office. 12.3% 09/28. Prior values 8-10%. Initially diagnosed with T2DM in since 2006. Was initially started on treatment with metformin. He had taken Jardiance (had yeast infection) Trulicity caused nausea Current regimen metformin 1000 mg BID Mounjaro 5.0 mg Qwkly (insurance not covering) Lantus 20 units Not taking Checking his sugar and over 200. Family history of T2DM in cousins on both sides has Type 2 and brother has Type 2 DM. Has eyes checked yearly, last eye exam appt in 09/2023 , denies retinopathy. + neuropathy, last foot exam today ,does not sees podiatry. +nephropathy, On KARTHIK. Microalbumin 141 09/28 Has HLD, on statin. Denies CAD. Tobacco: pack per day, since age 24 Has quit in the past. Had diabetes education but not recently . [facility] Medical History Numbness and tingling of right arm Noncompliance w/medication treatment due to intermit use of medication Smoker unmotivated to quit Family history of thyroid disease Exposure to COVID-19 virus Mixed dyslipidemia Type 2 diabetes mellitus with other diabetic kidney complication Essential hypertension Surgical History History of nasal surgery Abdominal hernia Family History Father No problems noted. Mother No problems noted. Paternal Grandfather Colon cancer Paternal Aunt Colon cancer Diabetes mellitus Brother No problems noted. Brother No problems noted. Sister No problems noted. Sister No problems noted. Sister No problems noted. Social History Household Members: None Housing: House Alcohol intake: never Patient Tobacco Use Status: Current everyday Tobacco user Tobacco use type: Cigarette Cigarette Packs Per Day: 0.5 Cigarettes Per Day: 10.0 Years Smoked: 26 e-Cigarette/Vaping Use: Never Used Second Hand Smoke Exposure: Yes service: No Current occupational status: employed Cognitive needs: No Hearing needs: No Vision needs: No Physical Exam Vital Signs: Last Vital Signs Pulse 92 01/20/24 10:58 BP 102/58 L 01/20/24 10:58 BMI result Body Mass Index 26.6 Results AMB Hemoglobin A1c AMB Hemoglobin A1c 12.2 % Last Edit by CHELSIE Abraham on 01/20/24 11:16 Results Reviewed Results Reviewed: Laboratory Last Values Glucose (Clinic) 224 mg/dL (60-115) H 01/20/24 11:06 Hgb A1c (Clinic) 12.2 % (4.0-6.0) H 01/20/24 11:10 Laboratory Tests 04/13/22 10/01/22 12/24/22 06:18 09:10 09:39 Estimated GFR > 60 Hgb A1c (Clinic) 10.5 H 8.1 H Triglycerides Cholesterol LDL Cholesterol, Calc HDL Cholesterol Urine Creatinine Urine Microalbumin Microalb/Creat Ratio 07/15/23 09/13/23 09/16/23 07:44 06:15 09:16 Estimated GFR Hgb A1c (Clinic) 12.3 H Triglycerides 294 H Cholesterol 175 LDL Cholesterol, Calc 84 HDL Cholesterol 33 L Urine Creatinine 132.51 Urine Microalbumin 141.0 Microalb/Creat Ratio 106.4 H Assessment & Plan Assessment & Plan (1) Type 2 diabetes mellitus with other diabetic kidney complication: Code(s): E11.29 - Type 2 diabetes mellitus with other diabetic kidney complication Category: Medical Plan: This is a 53-year-old male with a history of type 2 diabetes being treated with metformin with poor glycemic control and known microvascular complications namely micro albuminuria. He has had adverse reactions to SGLT 2 inhibitor (yeast infection). He has had some difficulty getting his medications covered. I contacted pharmacy and Solais Lightinge is available for $56 per month which patient believe he can cover cost. Awaiting copay information on Tresiba (I will contact patient once I speak with pharmacy. Patient does need blood work to check renal function. He will return in several weeks for FS lisa training and I will see him back after that time to review numbers. Obtain SHAGUFTA to rule out PAD. (2) Tinea pedis: Code(s): B35.3 - Tinea pedis Plan: anti fungal prescribed refer to pod for foot care Orders: Orders US arterial duplex LE BI 1 Week E11.29 - Type 2 diabetes mellitus with other diabetic kidney complication Comprehensive Met. Panel Today E11.29 - Type 2 diabetes mellitus with other diabetic kidney complication AMB Hemoglobin A1c Today E11.29 - Type 2 diabetes mellitus with other diabetic kidney complication, Z13.9 - Encounter for screening, unspecified Microalbumin, Random (w Creat) Today E11.29 - Type 2 diabetes mellitus with other diabetic kidney complication Creatinine Urine Today E11.29 - Type 2 diabetes mellitus with other diabetic kidney complication Referrals Podiatry Referral E11.29 - Type 2 diabetes mellitus with other diabetic kidney complication Medications: New insulin degludec (Tresiba FlexTouch U-100 insulin) 20 units (0.2 mL) subcut DAILY 30 days 6 mL 5RF E11.29 - Type 2 diabetes mellitus with other diabetic kidney complication clotrimazole 1% (Antifungal (clotrimazole)) 1 appl topical BID 4 weeks 30 grams 1RF B35.3 - Tinea pedis Refilled pen needle, diabetic (BD Ultra-Fine Mini Pen Needle) use once a day As directed 50 ea 2RF E11.29 - Type 2 diabetes mellitus with other diabetic kidney complication, E11.65 - Type 2 diabetes mellitus with hyperglycemia, Z79.4 - halfway (current) use of insulin Discontinued empagliflozin (Jardiance) Discontinued Reason: Doctor's Order 10 mg PO DAILY 30 tabs 1RF insulin glargine-yfgn (Semglee (insulin glargine-yfgn) Pen) Discontinued Reason: Doctor's Order 20 units (0.2 mL) subcut DAILY 15 mL 5RF Coding Level of Care Code Est Pt Level 5 (01741) Complex EM visit Add On G2211 Diagnoses Type 2 diabetes mellitus with other diabetic kidney complication E11.29 Tinea pedis B35.3 Time Spent (min) 60 Comment chart review, lab review face to face and chart doc
[2024-01-20 10:58] VITALS: BP 102/58; PULSE 92; BMI 26.6
[2024-01-20 11:10] LABS: Glucose, Whole Blood 224 mg/dL (60-115)
== END 2024-01-20 11:37 | disposition home or self-care (01) ==
PROVIDERS: PCP Internal Medicine; Visit Provider Nurse Practitioner Adult Health
DX: Z13.9 Encounter for screening, unspecified (principal); E11.29 Type 2 diabetes mellitus with other diabetic kidney complication; B35.3 Tinea pedis
CPT/HCPCS: 99215; 99417

== ENCOUNTER → 2024-01-20 10:34 | Outpatient (BNVA) | payer BC, SELFPAY | PROVIDERS: PCP Internal Medicine; Visit Provider Nurse Practitioner Adult Health | DX: E11.29 Type 2 diabetes mellitus with other diabetic kidney complication (principal); B35.3 Tinea pedis; Z79.84 Long term (current) use of oral hypoglycemic drugs | CPT/HCPCS: 82947; 83036 ==

== ENCOUNTER 2024-01-27 13:55 | Outpatient (REF) | payer BC, SELFPAY ==
--- NOTE | ~2024-01-27 | US_ITS ---
EXAMINATION: Noninvasive assessment of the bilateral lower extremities with ARTERIAL DUPLEX and ANKLE BRACHIAL INDICES (ABIs). CLINICAL INFORMATION: Peripheral vascular disease TECHNIQUE: Duplex Doppler techniques with waveform analysis and measurement of velocities in the bilateral common femoral, profunda femoris, superficial femoral, popliteal and tibial arteries were performed. Additionally, ankle pulse volume recordings, ankle pressure measurements and ankle brachial indices were obtained of the lower extremity arterial system bilaterally. The study was performed only at rest. COMPARISON: None FINDINGS: DIRECT DUPLEX DOPPLER FINDINGS: RIGHT LEG: Common femoral artery: 92 cm/s, phasicity: Triphasic Profunda femoris artery: 108 cm/s, phasicity: Triphasic Superficial femoral artery (proximal): 94 cm/s, phasicity: Triphasic Superficial femoral artery (mid): 105 cm/s, phasicity: Triphasic Superficial femoral artery (distal): 85 cm/s, phasicity: Triphasic Popliteal artery: 86 cm/s, phasicity: Triphasic Posterior tibial artery: 86 cm/s, phasicity: Triphasic Peroneal artery: 49 cm/s, phasicity: Triphasic Anterior tibial artery: 67 cm/s, phasicity: Triphasic Dorsalis pedis artery: 23 cm/s, phasicity:Monophasic LEFT LEG: Common femoral artery: 134 cm/s, phasicity: Triphasic Profunda femoris artery: 79 cm/s, phasicity: Biphasic Superficial femoral artery (proximal): 114 cm/s, phasicity: Triphasic Superficial femoral artery (mid): 84 cm/s, phasicity: Triphasic Superficial femoral artery (distal): 98 cm/s, phasicity: Triphasic Popliteal artery: 114 cm/s, phasicity: Triphasic Posterior tibial artery: 70 cm/s, phasicity: Triphasic Peroneal artery: 62 cm/s, phasicity: Triphasic Anterior tibial artery: 75 cm/s, phasicity: Triphasic Dorsalis pedis artery: 47 cm/s, phasicity: Monophasic ANKLE-BRACHIAL INDEX: Right: 1.07 Left: 1.15 ANKLE PRESSURES: Right: PT 127, DP 132 Left: PT 137, DP 132 ANKLE PVR WAVEFORMS: Right: Normal Left: Normal US/US arterial duplex BI w/ SHAGUFTA IMPRESSION: Right leg: Normal ankle brachial index and PVR waveform. Widely patent arterial flow throughout the right lower extremity with monophasic waveforms seen in the dorsalis pedis artery consistent with microvascular disease Left leg: Normal ankle brachial index and PVR waveform. Widely patent arterial flow throughout the left lower extremity with monophasic waveforms seen in the dorsalis pedis artery consistent with microvascular disease SHAGUFTA Reference: - >1.4 = calcified vessels - 0.9 - 1.4 = normal - no significant arterial disease - 0.7 - 0.89 = mild peripheral arterial disease - 0.51 - 0.69 = moderate peripheral arterial disease - d 0.50 = severe peripheral arterial disease - < .30 = critical arterial disease Electronically signed by: Anibal Bower MD 02/01/2024 09:42 PM EDT
== END 2024-01-27 13:56 | disposition home or self-care (01) ==
LOC: HO.US 13:55
PROVIDERS: PCP Internal Medicine; Visit Provider Nurse Practitioner Adult Health
DX: I73.9 Peripheral vascular disease, unspecified (principal); E11.29 Type 2 diabetes mellitus with other diabetic kidney complication; Z72.0 Tobacco use
CPT/HCPCS: 93922; 93925

== ENCOUNTER 2024-04-10 06:04 | Outpatient (REF) | payer BC, SELFPAY ==
[2024-04-10 10:42] LABS: Alanine Aminotransferase 27 U/L (0-40); Albumin Level 4.6 g/dL (3.5-5.0); Alkaline Phosphatase 108 U/L (39-117); Anion Gap 14 (12-20); Aspartate Amino Transferase 22 U/L (5-37); Bilirubin Total 0.4 mg/dL (0.0-1.0); Blood Urea Nitrogen 14 mg/dL (9-16); Calcium 9.9 mg/dL (8.4-10.2); Carbon Dioxide 25 mmol/L (22-29); Chloride 103 mmol/L (96-108); Cholesterol 198 mg/dL (<200); Estimated Glomerular Filt Rate > 60; Glucose Fasting 273 mg/dL (60-99); Glucose Random 272 mg/dL (60-115); HDL Cholesterol 32 mg/dL (>40); LDL Cholesterol Calculated 120 mg/dL (<100); Potassium 4.8 mmol/L (3.3-5.1); Sodium 137 mmol/L (135-145); Total Protein 7.9 g/dL (6.5-8.0); Triglycerides 232 mg/dL (<150)
[2024-04-10 11:16] LABS: Creatinine Urine 149.08 mg/dL
== END 2024-04-10 06:05 | disposition home or self-care (01) ==
LOC: HO.HMGCLDS 06:04
PROVIDERS: PCP Internal Medicine; Referring Provider Nurse Practitioner Adult Health; Visit Provider Internal Medicine
DX: E78.2 Mixed hyperlipidemia (principal); I10 Essential (primary) hypertension; E11.29 Type 2 diabetes mellitus with other diabetic kidney complication
CPT/HCPCS: 36415; 80048; 80053; 80061; 82043; 82570

== ENCOUNTER 2024-04-13 15:42 | Outpatient (AMB) | payer BC, SELFPAY ==
[2024-04-13 16:41] VITALS: BP 132/70; PULSE 88; O2SAT 98; BMI 25.4
--- NOTE | 2024-04-13 16:41 | A.OFFPC_ITS ---
Vital Signs 04/13/24 16:41 Height 5 ft 8 in Weight 167 lb BMI 25.4 BP 132/70 Blood Pressure Location Rt brachial Position Sitting Pulse 88 Pulse Source Pulse Oximeter Pulse Oximetry (%) 98 Oxygen Delivery Method Room Air Intake Visit Reasons: htn refill-ok by dr munguia Intake Note: Pt is here today for his HTN Allergies No Known Allergies [No Known Allergies*] Allergy (Unknown, Verified 04/13/24 23:52) Medication List - Last Reconciled 04/13/24 by Allegra Munguia MD aspirin 81 mg PO DAILY atorvastatin 40 mg PO DAILY blood sugar diagnostic (FreeStyle Lite Strips) Check fasting blood sugar twice a day a.m. and p.m. blood-glucose meter,continuous (FreeStyle Key 3 [place]) As directed blood-glucose sensor (FreeStyle Key 3 Sensor device) As directed - change every 14 days lancets (Easy Touch Safety Lancets) As directed. check blood glucose twice a day AM and PM lancets (FreeStyle Lancets) As directed checks 4 times a day lisinopril 10 mg PO DAILY metformin ER 1,000 mg (2 x 500 mg) PO BID omeprazole 20 mg PO DAILY pen needle, diabetic (BD Ultra-Fine Mini Pen Needle) use once a day As directed Tobacco use date assessed: 04/13/24 Dental Screening Dental Screen Date: 04/13/24 Did you have a dental visit in the last 12 months?: Yes Did you have a dental problem in the last 6 months where you did not have access to dental care?: No Was dental information given to patient?: Patient has dentist HPI htn refill-ok by dr munguia HPI Details 53-year-old male presents today for foll ow-up on his hypertension and hyperlipidemia. He is currently taking lisinopril 10 mg taken once daily in a.m., and has been taking atorvastatin 40 mg once a day at night. He states that he eats very little but eats the wrong kind of food, consists mainly of rice and beans. 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 Latest fasting labs done showed normal electrolytes, liver and renal function, but showed elevated triglycerides and LDL cholesterol. Blood pressure is at goal. Fortunately continues to smoke cigarettes He has diabetes mellitus , poorly controlled. He is currently being [place] [facility] currently only taking metformin a 1000 mg twice a day, as he states that he could not afford the medicines that they have been prescribing him. He was taken off Jardiance as he was complaining of frequent yeast infections while taking the medication and was unable to tolerate Trulicity due to side effect of nausea. On his latest fasting labs, his fasting glucose was 273 mg/dL, and last hemoglobin A1c drawn at endocrine clinic was 12.2% last 01/2024. He was prescribed Tresiba, later switched to Lantus and then to Semglee, all of which patient states he could not afford. Recommended to start on NPH insulin to be drawn twice a day but patient refuses to draw insulin from the vial.. Complaining of a painful growth on tip of his left 5th finger, present now for the last several months, getting bigger and is painful to touch. Would like a referral to see Dermatology to have it removed. [facility] Medical History (Updated 04/13/24 @ 17:13 by Allegra Munguia MD) Lesion of finger Numbness and tingling of right arm Noncompliance w/medication treatment due to intermit use of medication Smoker unmotivated to quit Family history of thyroid disease Exposure to COVID-19 virus Mixed dyslipidemia Type 2 diabetes mellitus with other diabetic kidney complication Essential hypertension Surgical History History of nasal surgery Abdominal hernia Family History Father No problems noted. Mother No problems noted. Paternal Grandfather Colon cancer Paternal Aunt Colon cancer Diabetes mellitus Brother No problems noted. Brother No problems noted. Sister No problems noted. Sister No problems noted. Sister No problems noted. Social History Household Members: None Housing: House Alcohol intake: never Patient Tobacco Use Status: Current everyday Tobacco user Tobacco use type: Cigarette Cigarette Packs Per Day: 0.5 Cigarettes Per Day: 10.0 Years Smoked: 26 e-Cigarette/Vaping Use: Never Used Second Hand Smoke Exposure: Yes service: No Current occupational status: employed Cognitive needs: No Hearing needs: No Vision needs: No Questionnaire PHQ-9 Over the last 2 weeks, how often have you been bothered by any of the following problems? 1. Little interest or pleasure in doing things: not at all 2. Feeling down, depressed, or hopeless: not at all 3. Trouble falling or staying asleep, or sleeping too much: not at all 4. Feeling tired or having little energy: not at all 5. Poor appetite or overeating: not at all 6. Feeling bad about yourself - or that you are a failure or have let yourself or your family down: not at all 7. Trouble concentrating on things, such as reading the newspaper or watching television: not at all 8. Moving or speaking so slowly that other people could have noticed. Or the opposite - being so fidgety or restless that you have been moving around a lot more than usual: not at all 9. Thoughts that you would be better off or of hurting yourself in some way: not at all Total score: 0 Depression Screening Interpretation: Negative Depression Screening Done: Yes 32330 - PHQ-9 Billing: Yes Source: Developed by Drs. Rm Aguirre, Mirta Mckenzie, Paul Gonzales and colleagues, with an educational junior from [employer]. Thrive Questionnaire Date Thrive assessed: 04/13/24 I am a: Patient What is your living situation today?: I have a steady place to live Within the past 12 months, did the food you bought not last and you didn't have the money to get more?: Never true Within the past 12 months, did you worry whether your food would run out before you got money to buy more?: Never true Do you have trouble paying for medicines?: No Do you have trouble getting transportation to medical appointments?: No Do you have trouble paying your heating and electricity bill?: No Do you have trouble taking care of your child, family member or friend?: No Do you have trouble with day-to-day activities such as bathing, preparing meals, shopping, managing finances, etc.?: No Are you currently unemployed and looking for a job?: No Are you interested in more education?: No THRIVE Score: 0 AUDIT C Alcohol Use Questionnaire (AUDIT-C) 1. How often do you have a drink containing alcohol?: Never Total Score: 0 SARATH-7 AMB Questionnaire SARATH-7 Date SARATH - 7 assessed: 04/13/24 Feeling nervous, anxious, or on edge: 0 = Not at all Not being able to stop or control worryin = Not at all Worrying too much about different things: 0 = Not at all Trouble relaxin = Not at all Being so restless that it is hard to sit still: 0 = Not at all Becoming easily annoyed or irritable: 0 = Not at all Feeling afraid as if something awful might happen: 0 = Not at all Total SARATH-7 score (0-4 normal; 5-9 mild; 10-14 moderate; 15-21 severe): 0 Source: Developed by Drs. Rm Aguirre, Mirta Mckenzie, Paul Gonzales and colleagues, with an educational junior from [employer]. SARATH-7 Assessment Billing SARATH-7 Assessment Tool: SARATH-7 Assessment 22054 Review of Systems Const Reports fatigue, Denies fever(s), Denies headache(s), Denies lethargy and Denies malaise Eyes Denies change in vision ENT Reports Normal hearing present, Denies dizziness and Denies headache(s) Card Denies chest pain, Denies rapid heart rate, Denies lightheadedness and Denies dyspnea Resp Denies chest congestion, Denies cough and Denies dyspnea GI Denies abdominal pain, Denies belching, Denies melena, Denies bloating, Denies change in bowel habits, Denies dyspepsia, Denies heartburn and Denies nausea Denies difficulty urinating, Reports erectile dysfunction, Denies dysuria and Denies penile discharge Musc Denies stiffness Neuro Reports no additional complaints, Reports Normal hearing present, Denies dizziness, Denies headache(s), Denies Sensory deficit (Neuro) and Denies paresthesias Psych Reports no additional complaints Endo Reports fatigue, Reports polydipsia and Reports polyuria Osvaldo/Lymph Reports no additional complaints Aller/Immun Reports no additional complaints Physical exam (Primary Care) Vital Signs: Last Vital Signs Pulse 88 04/13/24 16:41 BP 132/70 04/13/24 16:41 Pulse Ox 98 04/13/24 16:41 Oxygen Delivery Method Room Air 04/13/24 16:41 BMI result Body Mass Index 25.4 Tobacco/Smoking Status: Tobacco use Status Tobacco use date assessed 04/13/24 04/13/24 16:43 Patient Tobacco Use Status Current everyday Tobacco 04/13/24 16:43 Tobacco use type Cigarette 04/13/24 16:43 e-Cigarette/Vaping Use Never Used 04/13/24 16:43 Are you ready to quit: No PHQ-9: PHQ-9 Score PHQ-9: Total score 0 04/13/24 23:55 Depression Screening Interpretation: Negative Thrive Assessment: Date of Thrive Assessment Date Thrive assessed 04/13/24 04/13/24 16:44 Const Other: Alert oriented x3, no acute distress noted, ambulatory normal gait Orientation/consciousness: patient oriented x3 HENMT Mouth: Normal oral and palatal mucosa present, oropharynx normal and moist mucous membranes Eyes General: appearance normal, both eyes and all related structures Neck Neck: Yes full ROM, Yes no lymphadenopathy and Yes supple Resp Auscultation: clear to auscultation bilaterally Cardio Other: S1-S2 present regular rate and rhythm Back/Spine/Pelvis Back: No back tenderness Skin Other: Raised round lesion on dorsal aspect of left 5th finger Neuro General: patient oriented x3, gait normal, tone normal, moves all extremities, Normal light touch and pain sensation, no focal motor deficits, CN's II-XI intact bilaterally and normal sensation to monofilament Cranial nerves: Yes Normal hearing present Sensory Exam: No Sensory deficit (Neuro) Extrem General: Yes full ROM, Yes no joint enlargement, Yes no pedal edema and Yes normal gait Results Reviewed Results Reviewed: evangelist: Anthony Maldonado Age/Sex: 53/M : 1970 Unit#: [id number] Attend Dr: Allegra Munguia MD Re04/10/24 Status: DEP REF Location: [facility] Disch: SPEC : [id number] PAUL: 04/10/24 STATUS: COMP REQ : [id number] RECD: 04/10/[address]: Allegra Munguia MD COMP: 04/10/24 ENTERED: 04/10/[address]: Cyndie Peace 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 Chronic Kidney Disease: Estimated GFR < 60 mL/min/1.73m2 Severe Kidney Disease: Estimated GFR < 15 mL/min/1.73m2 Glucose, Random 272 H 60-115 mg/dL FBS 273 H 60-99 mg/dL A fasting glucose of 126 mg/dl or greater on more than one occasion is considered diagnostic of diabetes. CA 9.9 8.4-10.2 mg/dL Total Bili 0.4 0.0-1.0 mg/dL AST (GOT) 22 5-37 U/L ALT (GPT) 27 0-40 U/L Protein, Total 7.9 6.5-8.0 g/dL Alb 4.6 3.5-5.0 g/dL Triglyceride 232 H <150 mg/dL Desirable Triglyceride: less than 150 mg/dL Borderline High Triglyceride 150-199 mg/dL High Triglyceride: 200-499 mg/dL Very High Triglyceride: greater than or equal to 5OO mg/dL Cholesterol 198 <200 mg/dL Desirable Cholesterol: less than 200 mg/dL Borderline High Cholesterol: 200-239 mg/dL High Cholesterol: greater than 239 mg/dL LDL Calculated 120 H <100 mg/dL Desirable LDL: less than 100 mg/dL Near Optimal/Above Optimal LDL: 110-129 mg/dL Borderline High LDL: 130-159 mg/dL High LDL: 160-189 mg/dL Very High LDL: greater than or equal to 190 mg/dL HDL 32 L >40 mg/dL Desirable HDL: greater than 40 mg/dL Note: This HDL assay may give artificially low results in patients with liver disease. Alk Phos 108 39-117 U/L Coding Level of Care Code Est Pt Level 4 (85443) Complex EM visit Add On G2211 Diagnoses Lesion of finger L98.9 Mixed dyslipidemia E78.2 Type 2 diabetes mellitus with other diabetic kidney complication E11.29 Essential hypertension I10 Additional Codes PHQ-9 - 48092 - PHQ-9 Billing: Yes ([id number]) SARATH-7 Assessment Billing - SARATH-7 Assessment Tool: SARATH-7 Assessment 99822 ([id number]) Assessment & Plan Assessment & Plan (1) Lesion of finger: Comment: Painful skin lesion on left 5th finger Code(s): L98.9 - Disorder of the skin and subcutaneous tissue, unspecified Category: Medical Plan: Referral to [place] [facility] ordered (2) Mixed dyslipidemia: Code(s): E78.2 - Mixed hyperlipidemia Category: Medical Plan: Reviewed recent fasting lipid profile with patient with elevated triglycerides and LDL cholesterol not at goal of less than 100 mg/dL. Continue atorvastatin 40 mg daily, , in addition to adherence to low-cholesterol diet and regular exercise, at least 30 minutes 3 to 4 times a week. Smoking cessation again strongly recommended. Advised patient to make healthy food choices, eat more fruits, vegetables, whole grains, wild caught fish and low-fat dairy. Limit amount of meat and fried or fatty food products, as well as processed foods and fast foods. Follow-up scheduled with repeat fasting lipid panel in 3 months. (3) Type 2 diabetes mellitus with other diabetic kidney complication: Code(s): E11.29 - Type 2 diabetes mellitus with other diabetic kidney complication Category: Medical Plan: Diabetes mellitus poorly controlled, patient only taking metformin stating that he could not afford any of the other medicines prescribed to him lately. He was advised to schedule follow-up appointment with [facility] [place], was supposed to be seen last 02/2024 for follow-up on his diabetes mellitus after starting him on insulin in addition to metformin but patient was unable to get his insulin prescription filled due to financial constraints. Advised to discuss with his waste reclaimer about possibly getting him on the patient assistance program for these medications. Patient states that he has, showed gross blue shield insurance, advised to try using the patient keep on given by these pharmacies to help offset the cost of the medication. (4) Essential hypertension: Code(s): I10 - Essential (primary) hypertension Category: Medical Plan: Blood pressure at goal of less than 130/80. Continue with current medication. Reinforced importance of following a low sodium diet, getting regular exercise, smoking cessation, and lowering stress levels. Orders: Referrals Dermatology Referral L98.9 - Disorder of the skin and subcutaneous tissue, unspecified Medications: Refilled lisinopril 10 mg PO DAILY 90 tabs 1RF I10 - Essential (primary) hypertension
== END 2024-04-13 17:20 | disposition home or self-care (01) ==
PROVIDERS: PCP Internal Medicine; Visit Provider Internal Medicine
DX: L98.9 Disorder of the skin and subcutaneous tissue, unspecified (principal); E78.2 Mixed hyperlipidemia; E11.29 Type 2 diabetes mellitus with other diabetic kidney complication; I10 Essential (primary) hypertension

== ENCOUNTER → 2024-04-13 15:42 | Outpatient (BNVA) | payer BC, SELFPAY | PROVIDERS: PCP Internal Medicine; Visit Provider Internal Medicine | DX: L98.9 Disorder of the skin and subcutaneous tissue, unspecified (principal); E78.2 Mixed hyperlipidemia; E11.29 Type 2 diabetes mellitus with other diabetic kidney complication; I10 Essential (primary) hypertension; Z79.84 Long term (current) use of oral hypoglycemic drugs; Z79.899 Other long term (current) drug therapy | CPT/HCPCS: 96127 ==

== ENCOUNTER 2024-04-20 09:41 | Outpatient (AMB) | payer BC, SELFPAY ==
--- NOTE | 2024-04-19 08:07 | A.OFFVIS_ITS ---
Vital Signs 04/20/24 10:03 Height 5 ft 8 in Weight 165 lb 5.547 oz BMI 25.1 BP 120/80 Blood Pressure Location Rt brachial Position Sitting Pulse 74 Pulse Source Pulse Oximeter Intake Visit Reasons: DM Med check Intake Note: Patient presents today for a follow-up for Type 2 Diabetes Mellitus: Last Diabetic Eye exam: [facility], 09/06/2023 Last Podiatry Exam: Does not see a Director Of Financial Reporting Most recent HbA1c: 11.8%, 04/20/2024 Random Glucose- 298 mg/dL, Today Underpresser Hand Required: No Accompanied by: Self / Same As Patient Allergies No Known Allergies [No Known Allergies*] Allergy (Unknown, Verified 04/13/24 23:52) Medication List - Last Reconciled 04/20/24 by Cyndie Peace NP aspirin 81 mg PO DAILY atorvastatin 40 mg PO DAILY blood sugar diagnostic (FreeStyle Lite Strips) Check fasting blood sugar twice a day a.m. and p.m. blood-glucose meter (FreeStyle Lite Meter kit) As directed insulin glargine (Lantus U-100 Insulin) 20 units (0.2 mL) subcut QPM 30 days lancets (FreeStyle Lancets) As directed checks 2 times a day lisinopril 10 mg PO DAILY metformin ER 1,000 mg (2 x 500 mg) PO BID omeprazole 20 mg PO DAILY pen needle, diabetic (BD Ultra-Fine Mini Pen Needle) use once a day As directed pen needle, diabetic (BD Ultra-Fine [place] Pen Needle) As directed HPI Comments Details: 53 YO M who is seen in f/u for T2DM. He was last seen by myself on 01/20/24 with an A1C of 12.2%. A1C today is over 11%. Previous A1c was 12.3% 09/28. Prior values 8-10%. At his office visit he reported his copays were too high on Lantus and he contacted pharmacy and told them not to fill the prescription. I suggested he could switch over to NPH as it would be very low cost but he declined due to not wanting to draw insulin from a vial. Initially diagnosed with T2DM in since 2006. Was initially started on treatment with metformin. He had taken Jardiance (had yeast infection) Trulicity caused nausea insurance did not cover Stephan Current regimen metformin ER 1000 mg Bid Lantus 20 units Not taking due to high co-pay with his insurance Not checking his sugars as he can not find his meter Family history of T2DM in cousins on both sides has Type 2 and brother has Type 2 DM. Has eyes checked yearly, last eye exam appt in 09/2023 , denies retinopathy. + neuropathy, last foot exam today ,does not see podiatry. +nephropathy, On KARTHIK. Microalbumin 141 09/2023 eGFR>60 Has HLD, on statin. Denies CAD. Tobacco: pack per day, since age 24 Has quit in the past. Had diabetes education but not recently . [facility] Medical History (Updated 04/13/24 @ 17:13 by Allegra Londono MD) Lesion of finger Numbness and tingling of right arm Noncompliance w/medication treatment due to intermit use of medication Smoker unmotivated to quit Family history of thyroid disease Exposure to COVID-19 virus Mixed dyslipidemia Type 2 diabetes mellitus with other diabetic kidney complication Essential hypertension Surgical History History of nasal surgery Abdominal hernia Family History Father No problems noted. Mother No problems noted. Paternal Grandfather Colon cancer Paternal Aunt Colon cancer Diabetes mellitus Brother No problems noted. Brother No problems noted. Sister No problems noted. Sister No problems noted. Sister No problems noted. Social History Household Members: None Housing: House Alcohol intake: never Patient Tobacco Use Status: Current everyday Tobacco user Tobacco use type: Cigarette Cigarette Packs Per Day: 0.5 Cigarettes Per Day: 10.0 Years Smoked: 26 e-Cigarette/Vaping Use: Never Used Second Hand Smoke Exposure: Yes service: No Current occupational status: employed Cognitive needs: No Hearing needs: No Vision needs: No Physical Exam Vital Signs: Last Vital Signs Pulse 74 04/20/24 10:03 BP 120/80 04/20/24 10:03 BMI result Body Mass Index 25.1 Const Other: Absence of Cushingoid features. Absence of acromegalic features. Heart S1 S2, Reg R/R. No M/R G. Skin exam reveals absence of vitiligo or acanthosis nigricans. Visual exam of foot performed. No ulcerations or open lesions. No inter digit maceration or fissuring. No onychomycosis, no callouses. Sensation intact to monofilament exam. Vibratory sensation is normal with 128 Hz tuning fork. Results AMB Hemoglobin A1c AMB Hemoglobin A1c 11.8 % Last Edit by CHELSIE Gee on 04/20/24 10:2 2 Results Reviewed Results Reviewed: Laboratory Last Values Glucose (Clinic) 298 mg/dL (60-115) H 04/20/24 10:09 Hgb A1c (Clinic) 11.8 % (4.0-6.0) H 04/20/24 10:21 Assessment & Plan Assessment & Plan (1) Type 2 diabetes mellitus with other diabetic kidney complication: Code(s): E11.29 - Type 2 diabetes mellitus with other diabetic kidney complication Category: Medical Plan: 53-year-old type 2 diabetic with nephropathy with preserved renal function and neuropathy with poor glycemic control and compliance which he attributes to high co-pay for his medication. Today in the office we registered him for a 35 dollar Lantus co-pay card which should be sent to his e-mail. He was advised that if he was not able to obtain the card to call me and we will try a different insulin. He was at length counseled on the risks of uncontrolled diabetes in light of the fact that he has nephropathy and he understands that not controlling his sugars we will lead to eye and kidney damage New dosing: Lantus 20 units p.m. Metformin ER a 1000 mg b.i.d. Glipizide 5 mg b.i.d. He was counseled to take medication with food and that he needs to check his blood sugar to ensure that he is not running low and he meals on a regular basis. Prescription for new glucometer test strips and lancets was sent his pharmacy Orders: Orders AMB Hemoglobin A1c Today E11.29 - Type 2 diabetes mellitus with other diabetic kidney complication Medications: New blood-glucose meter (FreeStyle Lite Meter kit) As directed 1 ea 0RF pen needle, diabetic (BD Ultra-Fine [place] Pen Needle) As directed 50 ea 11RF blood-glucose meter (FreeStyle Lite Meter kit) As directed 1 ea 0RF insulin glargine (Lantus U-100 Insulin) 20 units (0.2 mL) subcut QPM 30 days 6 mL 11RF Changed From lancets (FreeStyle Lancets) As directed checks 4 times a day 100 ea 5RF To lancets (FreeStyle Lancets) As directed checks 2 times a day 100 ea 5RF Refilled blood sugar diagnostic (FreeStyle Lite Strips) Check fasting blood sugar twice a day a.m. and p.m. 100 ea 8RF E11.29 - Type 2 diabetes mellitus with other diabetic kidney complication, E11.65 - Type 2 diabetes mellitus with hyperglycemia, Z79.4 - assisted (current) use of insulin Discontinued lancets (Easy Touch Safety Lancets) Discontinued Reason: Doctor's Order As directed. 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 Fasting blood sugars should be 90-130 in the morning and less than 180 two hours after meals. Reviewed the relationship between poor diabetic control and the development of complications. Check your feet daily looking for any signs of infection, ulceration and seek medical attention if this occurs. Break in shoes gradually and do not wear open-toed shoes or walk barefooted. Carry a sugar source at all times Coding Level of Care Code Est Pt Level 4 (46507) Complex EM visit Add On G2211 Diagnoses Type 2 diabetes mellitus with other diabetic kidney complication E11.29 Time Spent (min) 43 Comment Time spent reviewing labs/provider notes, face to face, chart doc
[2024-04-20 10:03] VITALS: BP 120/80; PULSE 74; BMI 25.1
[2024-04-20 10:14] LABS: Glucose, Whole Blood 298 mg/dL (60-115)
== END 2024-04-20 10:35 | disposition home or self-care (01) ==
PROVIDERS: PCP Internal Medicine; Visit Provider Nurse Practitioner Adult Health
DX: E11.29 Type 2 diabetes mellitus with other diabetic kidney complication (principal)
CPT/HCPCS: 99214

== ENCOUNTER → 2024-04-20 09:41 | Outpatient (BNVA) | payer BC, SELFPAY | PROVIDERS: PCP Internal Medicine; Visit Provider Nurse Practitioner Adult Health | DX: E11.29 Type 2 diabetes mellitus with other diabetic kidney complication (principal) | CPT/HCPCS: 82947; 83036 ==

== ENCOUNTER 2024-05-11 10:04 | Outpatient (AMB) | payer BC, SELFPAY ==
--- NOTE | 2024-05-11 10:17 | MHC.AMDMED ---
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 Accompanied by: Self / Same As Patient Allergies No Known Allergies [No Known Allergies*] Allergy (Unknown, Verified 04/13/24 23:52) HPI Comprehensive Diabetes Asmnt Most Recent Diabetes Results: Microalb/Creat Ratio 120.0 ug/mg cr (<30) H 04/10/24 Cholesterol 198 mg/dL (<200) 04/10/24 HDL Cholesterol 32 mg/dL (>40) L 04/10/24 Triglycerides 232 mg/dL (<150) H 04/10/24 Creatinine 0.95 mg/dL (0.5-1.4) 04/10/24 Blood Urea Nitrogen 14 mg/dL (9-16) 04/10/24 Sodium 137 mmol/L (135-145) 04/10/24 Potassium 4.8 mmol/L (3.3-5.1) 04/10/24 Chloride 103 mmol/L (96-108) 04/10/24 Carbon Dioxide 25 mmol/L (22-29) 04/10/24 Calcium 9.9 mg/dL (8.4-10.2) 04/10/24 AST 22 U/L (5-37) 04/10/24 ALT 27 U/L (0-40) 04/10/24 Total Protein 7.9 g/dL (6.5-8.0) 04/10/24 Albumin 4.6 g/dL (3.5-5.0) 04/10/24 [facility] Medical History (Updated 04/13/24 @ 17:13 by Allegra Londono MD) Lesion of finger Numbness and tingling of right arm Noncompliance w/medication treatment due to intermit use of medication Smoker unmotivated to quit Family history of thyroid disease Exposure to COVID-19 virus Mixed dyslipidemia Type 2 diabetes mellitus with other diabetic kidney complication Essential hypertension Surgical History History of nasal surgery Abdominal hernia Family History Father No problems noted. Mother No problems noted. Paternal Grandfather Colon cancer Paternal Aunt Colon cancer Diabetes mellitus Brother No problems noted. Brother No problems noted. Sister No problems noted. Sister No problems noted. Sister No problems noted. Social History Household Members: None Housing: House Alcohol intake: never Patient Tobacco Use Status: Current everyday Tobacco user Tobacco use type: Cigarette Cigarette Packs Per Day: 0.5 Cigarettes Per Day: 10.0 Years Smoked: 26 e-Cigarette/Vaping Use: Never Used Second Hand Smoke Exposure: Yes service: No Current occupational status: employed Cognitive needs: No Hearing needs: No Vision needs: No Assessment & Plan Assessment & Plan (1) Type 2 diabetes mellitus with other diabetic kidney complication: Code(s): E11.29 - Type 2 diabetes mellitus with other diabetic kidney complication Plan: Patient reported that he had called several times to speak with [facility] but had not received a call back. He was upset with clinic as he feels that we are not helping him. I tried to assist patient in signing up for [employer] co-pay card Patient wanted to know why we could not provide him with continuous glucose monitoring sensor. He reports that his co-pay with his insurance is very high. Tried to explain to patient that he would have to discuss copays with his insurance Patient got up and left appointment This is the 2nd time he is walked out of an appointment Coding Level of Care Code Est Pt Level 1 (38408) Diagnoses Type 2 diabetes mellitus with other diabetic kidney complication E11.29
== END 2024-05-11 10:51 | disposition home or self-care (01) ==
PROVIDERS: PCP Internal Medicine; Visit Provider Registered Nurse Diabetes Educator
DX: E11.29 Type 2 diabetes mellitus with other diabetic kidney complication (principal)

== ENCOUNTER → 2024-05-11 10:04 | Outpatient (BNVA) | payer BC, SELFPAY | PROVIDERS: PCP Internal Medicine; Visit Provider Registered Nurse Diabetes Educator | DX: E11.29 Type 2 diabetes mellitus with other diabetic kidney complication (principal) | CPT/HCPCS: 99211 ==

== ENCOUNTER 2024-07-20 10:24 | Outpatient (REF) | payer BC, SELFPAY ==
--- NOTE | ~2024-07-20 | XR_ITS ---
CLINICAL HISTORY: M25.562 - Pain in left knee Standing AP view of both knees Comparison: None Findings: Bones intact. No dislocations. No significant loss of joint space, osteophytes, or erosions. No joint effusion. No radiopaque foreign body. IMPRESSION: 1. No acute findings. 2. No significant joint space narrowing. This document has been electronically signed by: Tuan Rodriguez MD on 07/21/2024 05:41:40
--- NOTE | ~2024-07-20 | XR_ITS ---
CLINICAL HISTORY: M17.11 - Unilateral primary osteoarthritis, right knee 2 view right knee Comparison: None Findings: No fractures or dislocations. No significant loss of joint space, osteophytes, or erosions. No joint effusion. No radiopaque foreign body. IMPRESSION: 1. No acute findings. 2. No significant degenerative change. This document has been electronically signed by: Tuan Rodriguez MD on 07/21/2024 05:40:05
--- OUTSIDE RECORDS SUMMARY | 2024-07-20 11:11 | XMS_ITS | Clinical Summary ---
Author Organization [facility] Address [address] [place] [address] Phone Care Team Providers Care Safety Admin Assistant Name Role Phone Allegra Londono MD Primary Care Provider Allergies No known active allergies Medications No known medications Encounters Date Type Department Care Team Description 05/12/2024 8:37 AM EST - 05/12/2024 12:18 PM EST Emergency [facility] Emergency [address] [place] [address] Infrapatellar bursitis of right knee (Primary Dx) Discharge Disposition: Home or Self Care from Last 3 Months Surgical History Surgery Date Site/Laterality Comments OTHER SURGICAL HISTORY PROCEDURE: IL EXCISION NASAL POLYP SIMPLE CATARACT EXTRACTION PROCEDURE: HISTORICAL CATARACT REMOVAL Medical History Medical History Date Comments History of tobacco use 06/14/2007 DX:Histor y of tobacco use Allergic rhinitis 06/14/2007 DX:Allergic rh initis Type II or unspecified type diabetes mellitus with unspecified complication, not stated as uncontrolled DX:Type II or unspecified ty pe diabetes mellitus with unspecified complication, not stated as uncontrolled GERD (gastroesophageal reflux disease) 06/14/07 DX:GERD (gastroesophageal reflux disease) Family History Medical History Relation Name Comments Blindness Neg Hx Cataracts Neg Hx Glaucoma Neg Hx Macular degeneration Neg Hx Strabismus Neg Hx Relation Name Status Comments Brother 1 Alive Sz Brother 2 Alive Father septisemia Mother Alive Sister 1 Alive Sister 2 Alive Sister 3 Alive Social History Tobacco Use Types Packs/Day Years Used Date Smoking Tobacco: Every Day Cigarettes Alcohol Use Standard Drinks/Week Comments No 0 (1 standard drink = 0.6 oz pur e alcohol) Sex and Gender Information Value Date Recorded Sex Assigned at Male 05/12/2024 9:11 AM EST Legal Sex Male 5:41 AM EST Gender Identity Male 05/12/2024 9:11 AM EST Sexual Orientation Straight 05/12/2024 9: 11 AM EST Obstetrics History Last Filed Vital Signs Vital Sign Reading Time Taken Comments Blood Pressure 128/70 05/12/2024 11:41 AM EST Pulse 96 05/12/2024 11:41 AM EST Temperature 36.7 ??C (98.1 ??F) 05/12/2024 11:[address] Respiratory Rate 16 05/12/2024 11:42 AM EST Oxygen Saturation 99% 05/12/2024 11:41 AM EST Inhaled Oxygen Concentration - - Weight 77.1 kg (170 lb) 05/12/2024 8:26 AM EST Height 172.7 cm (5' 8 ) 05/12/2024 8:26 AM EST Body Mass Index 25.85 05/12/2024 8:26 AM EST Plan of Treatment Health Maintenance Due Date Last Done Comments Diabetes: Annual Foot Exam 1979 Diabetes: Annual Retina Eye Exam 1979 Hepatitis B Vaccines (1 of 3 - 19+ 3-dose series) 1988 Pneumococcal Vaccine: 50+ Years (2 of 2 - PCV) 10/19/2015 10/18/2014, 09/21/2007 Pneumococcal Vaccine: Pediatrics (0 to 5 Years) and At-Risk Patients (6 to 64 Years) (2 of 2 - PCV) 10/19/2015 10/18/2014, 09/21/2007 Cholesterol Screening (Lipid Panel) 05/10/2022 Colorectal Cancer Screening: Colonoscopy 05/10/2022 Depression Screening 05/10/2022 HIV Screening 05/10/2022 Hepatitis C Screening 05/10/2022 Social Influencers of Health Screening 05/10/2022 Diabetes: Annual Urine Albumin-Creatinine Ratio (uACR) 05/14/2022 Diabetes: Blood Sugar Control Test (HGBA1C) 05/14/2022 COVID-19 Vaccine ( season) 2024 06/03/2023, 04/06/2022, 05/17/2021, Additional history exists Diabetes: Annual GFR (Glomerular Filtration Rate) 05/12/2025 05/12/2024 DTaP,Tdap,and Td Vaccines (4 - Td or Tdap) 08/30/2032 08/30/2022, 02/03/2018, 06/14/2007 Zoster Vaccines Completed 08/17/2023, 05/29/2023 Influenza Vaccine Completed 03/23/2024, , 04/06/2022, Additional history exists HIB Vaccines Aged Out No longer eligi ble based on patient's age to complete this topic HPV Vaccines Aged Out No longer eligi ble based on patient's age to complete this topic Hepatitis A Vaccines Aged Out No long er eligible based on patient's age to complete this topic IPV Vaccines Aged Out No longer eligi ble based on patient's age to complete this topic MMR Vaccines Aged Out No longer eligi ble based on patient's age to complete this topic Meningococcal ACWY Vaccine Aged Out N o longer eligible based on patient's age to complete this topic Meningococcal B Vacine Aged Out No lo nger eligible based on patient's age to complete this topic RSV Immunization Patients Under 20 months Aged Out No longer eligible based on patient's age to complete this topic Varicella Vaccines Aged Out No longer eligible based on patient's age to complete this topic Procedures Procedure Name Priority Date/Time Associated Diagnosis Comments POCT GLUCOSE BLOOD Routine 05/12/2024 11 :59 AM EST CBC WITH AUTO DIFFERENTIAL STAT 05/12/2024 9:48 AM EST COMPREHENSIVE METABOLIC PANEL STAT 05/12/2024 9:48 AM EST C-REACTIVE PROTEIN STAT 05/12/2024 9: 48 AM EST SEDIMENTATION RATE STAT 05/12/2024 9: 48 AM EST CBC AND DIFFERENTIAL STAT 05/12/2024 9:48 AM EST US EXTREMITY NONVASCULAR LIMITED RIGHT STAT 05/12/2024 9:41 AM EST XR KNEE 4+ VIEWS RIGHT STAT 8:47 AM EST from Last 3 Months Results * (ABNORMAL) POCT Glucose, blood (05/12/2024 11:59 AM EST) Glucose POCT 331(H) 70 - 100 mg/dL 06/21/2024 2:49 PM [facility] Blood Capillary blood specimen / Unknown 05/12/2024 11:59 AM EST 06/28/2024 1:43 PM EST us Generic Provider Poct LAB POINT OF CARE TEST DOCKED DEVICE UNSOLICITED RESULTS Final Result [facility] [address] [place] [address], * (ABNORMAL) CBC auto differential (05/12/2024 9:48 AM EST) Pathologist [facility] WBC 11.4(H) 4.8 - 10.8 K/mcL LAB HEMETOLOGY METHOD 05/12/2024 10:17 AM [facility] RBC 4.90 4.50 - 5.50 M/mcL LAB HEMETOLOGY METHOD 05/12/2024 10:17 AM [facility] Hemoglobin 14.2 13.5 - 17.5 g/dL LAB HEMETOLOGY METHOD 05/12/2024 10:17 AM [facility] Hematocrit 43.7 42.0 - 54.0 % LAB HEMETOLOGY METHOD 05/12/2024 10:17 AM [facility] MCV 90.1 79.0 - 98.0 FL LAB HEMETOLOGY METHOD 05/12/2024 10:17 AM [facility] MCH 29.3 27.0 - 32.0 pcg LAB HEMETOLOGY METHOD 05/12/2024 10:17 AM [facility] MCHC 32.5 32.0 - 37.0 g/dL LAB HEMETOLOGY METHOD 05/12/2024 10:17 AM [facility] RDW 12.0 11.0 - 15.0 % LAB HEMETOLOGY METHOD 05/12/2024 10:17 AM [facility] Platelets 214 130 - 400 K/mcL LAB HEMETOLOGY METHOD 05/12/2024 10:17 AM [facility] MPV 12.0(H) 7.0 - 11.0 FL LAB HEMETOLOGY METHOD 05/12/2024 10:17 AM [facility] NRBC 0.0 <1.0 % LAB HEMETOLOGY METHOD 05/12/2024 10:17 AM [facility] NRBC Absolute 0.00 <0.10 K/mcL LAB HEMETOLOGY METHOD 05/12/2024 10:17 AM [facility] Neutrophils Relative 64.2 % LAB HEMETOLOGY METHOD 05/12/2024 10:17 AM [facility] Lymphocytes Relative 16.3 % LAB HEMETOLOGY METHOD 05/12/2024 10:17 AM [facility] Monocytes Relative 7.6 % LAB HEMETOLOGY METHOD 05/12/2024 10:17 AM [facility] Eosinophils Relative 10.8 % LAB HEMETOLOGY METHOD 05/12/2024 10:17 AM [facility] Basophils Relative 0.7 % LAB HEMETOLOGY METHOD 05/12/2024 10:17 AM [facility] Immature Granulocytes Relative 0.4 % LAB HEMETOLOGY METHOD 05/12/2024 10:17 AM [facility] Neutrophils Absolute 7.30(H) 1.50 - 7.00 K/mcL LAB HEMETOLOGY METHOD 05/12/2024 10:17 AM [facility] Lymphocytes Absolute 1.85 1.00 - 5.00 K/mcL LAB HEMETOLOGY METHOD 05/12/2024 10:17 AM [facility] Monocytes Absolute 0.86 0.20 - 1.00 K/mcL LAB HEMETOLOGY METHOD 05/12/2024 10:17 AM EST [facility] Eosinophils Absolute 1.23(H) 0.00 - 0.50 K/[facility] LAB HEMETOLOGY METHOD 05/12/2024 10:17 AM EST [facility] Basophils Absolute 0.08 0.00 - 0.20 K/[facility] LAB HEMETOLOGY METHOD 05/12/2024 10:17 AM EST [facility] Immature Granulocytes Absolute 0.05(H) 0.00 - 0.03 K/[facility] LAB HEMETOLOGY METHOD 05/12/2024 10:17 AM [facility] Blood Venous blood specimen / Unknown Venipuncture / Unknown 05/12/2024 9:48 AM EST 05/12/2024 10:11 AM EST us Shanna COVINGTON LAB BLOOD ORDERABLES Final Re sult [facility] [address] [place] [address], [place] [phone] * (ABNORMAL) Sedimentation rate (05/12/2024 9:48 AM EST) [facility] Sed Rate 49(H) 0 - 20 mm/hr LAB HEMETOLOGY METHOD 05/12/2024 10:23 AM EST [facility] Blood Venous blood specimen / Unknown Venipuncture / Unknown 05/12/2024 9:48 AM EST 05/12/2024 10:11 AM EST us Shanna COVINGTON LAB BLOOD ORDERABLES Final Re sult [facility] [address] [place] [address], [place] [phone] * (ABNORMAL) C-reactive protein (05/12/2024 9:48 AM EST) [facility] C-Reactive Protein 3.92(H) <=0.50 mg/dL LAB CHEMISTRY METHOD 05/12/2024 10:39 AM [facility] Blood Venous blood specimen / Unknown Venipuncture / Unknown 05/12/2024 9:48 AM EST 05/12/2024 10:11 AM EST Shanna COVINGTON LAB BLOOD ORDERABLES Final Re sult [facility] [address] [place] [address], [place] [phone] * (ABNORMAL) Comprehensive metabolic panel (05/12/2024 9:48 AM EST) [facility] Sodium 134 133 - 145 mmol/L LAB CHEMISTRY METHOD 05/12/2024 10:53 AM [facility] Potassium 4.8 3.5 - 5.5 mmol/L LAB CHEMISTRY METHOD 05/12/2024 10:53 AM [facility] Chloride 104 96 - 110 mmol/L LAB CHEMISTRY METHOD 05/12/2024 10:53 AM [facility] CO2 26 21 - 32 mmol/L LAB CHEMISTRY METHOD 05/12/2024 10:53 AM [facility] Anion Gap 4 3 - 11 LAB CHEMISTRY METHOD 05/12/2024 10:53 AM [facility] Glucose 522(HH) 70 - 100 mg/dL LAB CHEMISTRY METHOD 05/12/2024 10:53 AM [facility] BUN 16 5 - 25 mg/dL LAB CHEMISTRY METHOD 05/12/2024 10:53 AM [facility] Creatinine 1.06 0.70 - 1.30 mg/dL LAB CHEMISTRY METHOD 05/12/2024 10:53 AM [facility] eGFR 83 >=60 mL/min/1. 73m2 LAB CHEMISTRY METHOD 05/12/2024 10:53 AM [facility] Comment:Calculation based on the??Chronic Kidney Disease Epidemiology Collaboration (CKD-EPI) equation refit??without adjustment for race. BUN/Creatinine Ratio 15.1 LAB CHEMISTRY METHOD 05/12/2024 10:53 AM [facility] Calcium 9.1 8.5 - 10.5 mg/dL LAB CHEMISTRY METHOD 05/12/2024 10:53 AM [facility] AST (SGOT) 13 10 - 42 unit/L LAB CHEMISTRY METHOD 05/12/2024 10:53 AM [facility] ALT (SGPT) 22 10 - 60 unit/L LAB CHEMISTRY METHOD 05/12/2024 10:53 AM [facility] Alkaline Phosphatase 151(H) 42 - 121 unit/L LAB CHEMISTRY METHOD 05/12/2024 10:53 AM [facility] Total Protein 7.4 6.0 - 8.0 g/dL LAB CHEMISTRY METHOD 05/12/2024 10:53 AM [facility] Albumin 3.8 3.2 - 5.0 g/dL LAB CHEMISTRY METHOD 05/12/2024 10:53 AM [facility] Total Bilirubin 0.4 0.0 - 1.4 mg/dL LAB CHEMISTRY METHOD 05/12/2024 10:53 AM [facility] Blood Venous blood specimen / Unknown Venipuncture / Unknown 05/12/2024 9:48 AM EST 05/12/2024 10:11 AM EST us Shanna COVINGTON LAB BLOOD ORDERABLES Final Re sult [facility] [address] [place] [address], * [place] Extremity Nonvascular Limited Right (05/12/2024 9:41 AM EST) Anatomical Region Laterality Modality Extremity Right Ultrasound 05/12/2024 11:3 4 AM EST Impressions 05/12/2024 11:36 AM EST Complex echogenic fluid collection in the infrapatellar superficial soft tissue suggestive of complex bursitis or an old hematoma. No increased vascularity seen in this region. -------- FINAL REPORT -------- Dictated By: Ashok Mendoza Dictated Date: 05/12/2024 11:34 ET Assigned Physician: Ashok Mendoza Reviewed and Electronically Signed By: Ashok Mendoza Signed Date: 05/12/2024 11:36 ET Workstation ID: [id number] Transcribed By: Self Edit Transcribed Date: 05/12/2024 11:34 ET Narrative 05/12/2024 11:36 AM EST EXAMINATION: Ultrasound extremity nonvascular. CLINICAL INDICATION: Infrapatellar soft tissue swelling. COMPARISON: None. TECHNIQUE: Nonvascular ultrasound imaging of anterior paravertebral region was performed. FINDINGS: The patellar tendon is intact. A complex echogenic fluid collection in the infrapatellar superficial soft tissues suggestive of complex bursitis or complex hematoma. No prepatellar joint effusion seen. Procedure Note Ashok Mendoza MD - 05/12/2024 EXAMINATION: Ultrasound extremity nonvascular. CLINICAL INDICATION: Infrapatellar soft tissue swelling. COMPARISON: None. TECHNIQUE: Nonvascular ultrasound imaging of anterior paravertebral regionwas performed. FINDINGS: The patellar tendon is intact. A complex echogenic fluidcollection in the infrapatellar superficial soft tissues suggestive ofcomplex bursitis or complex hematoma. No prepatellar joint effusionseen. IMPRESSION: Complex echogenic fluid collection in the infrapatellar superficial softtissue suggestive of complex bursitis or an old hematoma. No increasedvascularity seen in this region. -------- FINAL REPORT -------- Dictated By: Ashok Mendoza Dictated Date: 05/12/2024 11:34 ET Assigned Physician: Ashok Mendoza Reviewed and Electronically Signed By: Ashok Mendoza Signed Date: 05/12/2024 11:36 ET Workstation ID: [id number] Transcribed By: Self Edit Transcribed Date: 05/12/2024 11:34 ET Shanna COVINGTON IMG US PROCEDURES Final Resul t * XR Knee 4+ Views Right (05/12/2024 8:47 AM EST) Anatomical Region Laterality Modality Lower Extremities, Knee Right Radiogra [facility] Imaging 05/12/2024 8:50 AM EST Impressions 05/12/2024 8:51 AM EST No acute fracture or malalignment. -------- FINAL REPORT -------- Dictated By: Saad Murphy Dictated Date: 05/12/2024 08:50 ET Assigned Physician: Saad Murphy Reviewed and Electronically Signed By: Saad Murphy Signed Date: 05/12/2024 08:51 ET Workstation ID: [id number] Transcribed By: Self Edit Transcribed Date: 05/12/2024 08:50 ET Narrative 05/12/2024 8:51 AM EST Multiple radiographs of the right knee, 05/12/2024. HISTORY: left knee pain. COMPARISON: None. FINDINGS: Mineralization is within normal limits. ??No focal bony lesion or fracture. ??No significant degenerative change. ??No joint effusion. ??No bony erosion. Procedure Note Saad Murphy MD - 05/12/2024 Multiple radiographs of the right knee, 05/12/2024. HISTORY: left knee pain. COMPARISON: None. FINDINGS: Mineralization is within normal limits. No focal bony lesion or fracture.No significant degenerative change. No joint effusion. No bonyerosion. IMPRESSION: No acute fracture or malalignment. -------- FINAL REPORT -------- Dictated By: Saad Murphy Dictated Date: 05/12/2024 08:50 ET Assigned Physician: Saad Murphy Reviewed and Electronically Signed By: Saad Murphy Signed Date: 05/12/2024 08:51 ET Workstation ID: [id number] Transcribed By: Self Edit Transcribed Date: 05/12/2024 08:50 ET Shanna R Hevey PA IMG XR PROCEDURES Final Resul t from Last 3 Months Insurance [facility] Care Teams Safety Admin Assistant Relationship Specialty Start Date End Date Allegra Londono MD [address] [place] [address] PCP - General Internal Medicine 05/20/20
== END 2024-07-20 10:25 | disposition home or self-care (01) ==
LOC: HO.XRAY 10:24
PROVIDERS: PCP Internal Medicine; Visit Provider Physician Assistant
DX: M25.562 Pain in left knee (principal); M17.11 Unilateral primary osteoarthritis, right knee; M70.51 Other bursitis of knee, right knee
CPT/HCPCS: 73560; 73562

== ENCOUNTER → 2024-07-20 10:28 | Outpatient (BNV) | payer BC, SELFPAY | PROVIDERS: PCP Internal Medicine; Visit Provider Radiology Vascular & Interventional Radiology | DX: M17.11 Unilateral primary osteoarthritis, right knee (principal); M25.562 Pain in left knee | CPT/HCPCS: 73560; 73562 ==

== ENCOUNTER 2024-07-20 11:05 | Outpatient (AMB) | payer BC, SELFPAY ==
[2024-07-20 11:07] VITALS: BMI 25.1
--- NOTE | 2024-07-20 11:07 | A.OFFVIS_ITS ---
Vital Signs 07/20/24 11:07 Height 5 ft 8 in Weight 165 lb BMI 25.1 Intake Visit Reasons: New prob- RT knee pain/bursitis Intake Note: Anthony is a 54 year old male who presents today for a new problem visit for a evaluation if his right knee pain. States about 3 months he felt pain and noticed a bump underneath his knee cap. Seen at [facility] ED where he was told he has bursitis in knee. He was told to be seen with his PCP who refuse to see patient due to not having referral from [facility]. Currently states bump has decreased in size and is doing better today. States he has no pain jsut concern due to bump. Denies past knee injection or P.T . Hx of DM. Allergies No Known Allergies [No Known Allergies*] Allergy (Unknown, Verified 07/20/24 11:15) HPI HPI New prob- RT knee pain/bursitis: Details: 54-year-old gentleman who presents to the office today for pain in the right knee. He states a few weeks ago he noticed some swelling in the knee just below the kneecap. He denies injury. He states that the swelling has improved over the last few days and he is not experiencing any discomfort or limitations with activity. [facility] Medical History (Updated 06/21/24 @ 16:14 by Allegra Londono MD) Lesion of finger Numbness and tingling of right arm Noncompliance w/medication treatment due to intermit use of medication Smoker unmotivated to quit Family history of thyroid disease Exposure to COVID-19 virus Mixed dyslipidemia Type 2 diabetes mellitus with other diabetic kidney complication Essential hypertension Surgical History History of nasal surgery Abdominal hernia Family History Father No problems noted. Mother No problems noted. Paternal Grandfather Colon cancer Paternal Aunt Colon cancer Diabetes mellitus Brother No problems noted. Brother No problems noted. Sister No problems noted. Sister No problems noted. Sister No problems noted. Social History (Updated 07/20/24 @ 11:16 by HERNESTO Alicea) Household Members: None Housing: House Alcohol intake: never Patient Tobacco Use Status: Current everyday Tobacco user Tobacco use type: Cigarette Cigarette Packs Per Day: 0.5 Cigarettes Per Day: 10.0 Years Smoked: 26 e-Cigarette/Vaping Use: Never Used Second Hand Smoke Exposure: Yes service: No Current occupational status: employed Current occupation: [employer]/ rt hand Cognitive needs: No Hearing needs: No Vision needs: No Review of Systems Const All systems reviewed & are unremarkable except as noted in HPI and below Physical Exam Vital Signs: BMI result Body Mass Index 25.1 Const General: cooperative and no acute distress Orientation/consciousness: patient oriented x3 Resp Effort & Inspection: normal respiratory effort and able to speak in complete sentences Cardio Peripheral pulses: Peripheral pulses 2+ throughout Neuro General: patient oriented x3 Extrem Other: Right knee is normal to inspection he is trace infrapatellar bursitis. He has full range of motion without pain. Calf supple nontender neurovascularly intact. Results Reviewed Results Reviewed: X-rays of the right knee obtained in the office today are negative for any acute or chronic abnormalities. Assessment & Plan Assessment & Plan (1) Infrapatellar bursitis of right knee: Code(s): M70.51 - Other bursitis of knee, right knee Category: Medical Plan: He will continue with activities as tolerated. I explained he should avoid activities such as kneeling on the knee to avoid recurrence. If he does develop some worsening swelling he can compress with an Keven wrap. I did recommend physical therapy to work on strengthening exercises of the knee which he declined. If symptoms persist or worsen he will contact our office otherwise follow up as needed. Orders: Orders XR knee RT 3V Today M17.11 - Unilateral primary osteoarthritis, right knee XR knee LT 1V Today M25.562 - Pain in left knee Coding Level of Care Code New Pt Level 3 (35650) Complex EM visit Add On G2211 Diagnoses Infrapatellar bursitis of right knee M70.51
--- OUTSIDE RECORDS SUMMARY | 2024-07-20 11:47 | XMS_ITS | Clinical Summary ---
Author Organization [facility] Address [address] [place] [address] Phone Care Team Providers Care Commercial Manager Name Role Phone Allegra Londono MD Primary Care Provider [phone] Allergies No known active allergies Medications No known medications Encounters Date Type Department Care Team Description 05/12/2024 8:37 AM EST - 05/12/2024 12:18 PM EST Emergency [facility] Emergency [address] [place] [address] Infrapatellar bursitis of right knee (Primary Dx) Discharge Disposition: Home or Self Care from Last 3 Months Surgical History Surgery Date Site/Laterality Comments OTHER SURGICAL HISTORY PROCEDURE: [place] EXCISION NASAL POLYP SIMPLE CATARACT EXTRACTION PROCEDURE: [...] 70 - 100 mg/dL 06/21/2024 2:49 PM [facility] Blood Capillary blood specimen / Unknown 05/12/2024 11:59 AM EST 06/28/2024 1:43 PM EST us Generic Provider Poct LAB POINT OF CARE TEST DOCKED DEVICE UNSOLICITED RESULTS Final Result [facility] [address] [place] [address], * (ABNORMAL) CBC auto differential (05/12/2024 9:48 AM EST) Pathologist [facility] WBC 11.4(H) 4.8 - 10.8 K/mcL LAB HEMETOLOGY METHOD 05/12/2024 10:17 AM [facility] RBC 4.90 4.50 - 5.50 M/mcL LAB HEMETOLOGY METHOD 05/12/2024 10:17 AM [facility] Hemoglobin 14.2 13.5 - 17.5 g/dL LAB HEMETOLOGY METHOD 05/12/2024 10:17 AM [facility] Hematocrit 43.7 42.0 - 54.0 % LAB HEMETOLOGY METHOD 05/12/2024 10:17 AM [facility] MCV 90.1 79.0 - 98.0 FL LAB HEMETOLOGY METHOD 05/12/2024 10:17 AM [facility] MCH 29.3 27.0 - 32.0 pcg LAB HEMETOLOGY METHOD 05/12/2024 10:17 AM [facility] MCHC 32.5 32.0 - 37.0 g/dL LAB HEMETOLOGY METHOD 05/12/2024 10:17 AM [facility] RDW 12.0 11.0 - 15.0 % LAB HEMETOLOGY METHOD 05/12/2024 10:17 AM [facility] Platelets 214 130 - 400 K/mcL LAB HEMETOLOGY METHOD 05/12/2024 10:17 AM [facility] MPV 12.0(H) 7.0 - 11.0 FL LAB HEMETOLOGY METHOD 05/12/2024 10:17 AM [facility] NRBC 0.0 <1.0 % LAB HEMETOLOGY METHOD 05/12/2024 10:17 AM [facility] NRBC Absolute 0.00 <0.10 K/mcL LAB HEMETOLOGY METHOD 05/12/2024 10:17 AM [facility] Neutrophils Relative 64.2 % LAB HEMETOLOGY METHOD 05/12/2024 10:17 AM [facility] Lymphocytes Relative 16.3 % LAB HEMETOLOGY METHOD 05/12/2024 10:17 AM [facility] Monocytes Relative 7.6 % LAB HEMETOLOGY METHOD 05/12/2024 10:17 AM [facility] Eosinophils Relative 10.8 % LAB HEMETOLOGY METHOD 05/12/2024 10:17 AM [facility] Basophils Relative 0.7 % LAB HEMETOLOGY METHOD 05/12/2024 10:17 AM [facility] Immature Granulocytes Relative 0.4 % LAB HEMETOLOGY METHOD 05/12/2024 10:17 AM [facility] Neutrophils Absolute 7.30(H) 1.50 - 7.00 K/mcL LAB HEMETOLOGY METHOD 05/12/2024 10:17 AM [facility] Lymphocytes Absolute 1.85 1.00 - 5.00 K/mcL LAB HEMETOLOGY METHOD 05/12/2024 10:17 AM [facility] Monocytes Absolute 0.86 0.20 - 1.00 K/mcL LAB HEMETOLOGY METHOD 05/12/2024 10:17 AM EST [facility] Eosinophils Absolute 1.23(H) 0.00 - 0.50 K/[facility] LAB HEMETOLOGY METHOD 05/12/2024 10:17 AM EST [facility] Basophils Absolute 0.08 0.00 - 0.20 K/[facility] LAB HEMETOLOGY METHOD 05/12/2024 10:17 AM EST [facility] Immature Granulocytes Absolute 0.05(H) 0.00 - 0.03 K/[facility] LAB HEMETOLOGY METHOD 05/12/2024 10:17 AM [facility] Blood Venous blood specimen / Unknown Venipuncture / Unknown 05/12/2024 9:48 AM EST 05/12/2024 10:11 AM EST us Shanna [facility] LAB BLOOD ORDERABLES Final Re sult [facility] [address] [place] [address], [place] [phone] * (ABNORMAL) Sedimentation rate (05/12/2024 9:48 AM EST) [facility] Sed Rate 49(H) 0 - 20 mm/hr LAB HEMETOLOGY METHOD 05/12/2024 10:23 AM EST [facility] Blood Venous blood specimen / Unknown Venipuncture / Unknown 05/12/2024 9:48 AM EST 05/12/2024 10:11 AM EST us Shanna [facility] LAB BLOOD ORDERABLES Final Re sult [facility] [address] [place] [address], [place] [phone] * (ABNORMAL) C-reactive protein (05/12/2024 9:48 AM EST) [facility] C-Reactive Protein 3.92(H) <=0.50 mg/dL LAB CHEMISTRY METHOD 05/12/2024 10:39 AM [facility] Blood Venous blood specimen / Unknown Venipuncture / Unknown 05/12/2024 9:48 AM EST 05/12/2024 10:11 AM EST Shanna [facility] LAB BLOOD ORDERABLES Final Re sult [facility] [address] [place] [address], [place] [phone] * (ABNORMAL) Comprehensive metabolic panel (05/12/2024 9:48 AM EST) [facility] Sodium 134 133 - 145 mmol/L LAB CHEMISTRY METHOD 05/12/2024 10:53 AM [facility] Potassium 4.8 3.5 - 5.5 mmol/L LAB CHEMISTRY METHOD 05/12/2024 10:53 AM [facility] Chloride 104 96 - 110 mmol/L LAB CHEMISTRY METHOD 05/12/2024 10:53 AM [facility] CO2 26 21 - 32 mmol/L LAB CHEMISTRY METHOD 05/12/2024 10:53 AM [facility] Anion Gap 4 3 - 11 LAB CHEMISTRY METHOD 05/12/2024 10:53 AM [facility] Glucose 522(HH) 70 - 100 mg/dL LAB CHEMISTRY METHOD 05/12/2024 10:53 AM [facility] BUN 16 5 - 25 mg/dL LAB CHEMISTRY METHOD 05/12/2024 10:53 AM [facility] Creatinine 1.06 0.70 - 1.30 mg/dL LAB CHEMISTRY METHOD 05/12/2024 10:53 AM [facility] eGFR 83 >=60 mL/min/1. 73m2 LAB CHEMISTRY METHOD 05/12/2024 10:53 AM [facility] Comment:Calculation based on the??Chronic Kidney Disease Epidemiology Collaboration (CKD-EPI) equation refit??without adjustment for race. BUN/Creatinine Ratio 15.1 LAB CHEMISTRY METHOD 05/12/2024 10:53 AM [facility] Calcium 9.1 8.5 - 10.5 mg/dL LAB CHEMISTRY METHOD 05/12/2024 10:53 AM [facility] AST (SGOT) 13 10 - 42 unit/L LAB CHEMISTRY METHOD 05/12/2024 10:53 AM [facility] ALT (SGPT) 22 10 - 60 unit/L LAB CHEMISTRY METHOD 05/12/2024 10:53 AM [facility] Alkaline Phosphatase 151(H) 42 - 121 unit/L LAB CHEMISTRY METHOD 05/12/2024 10:53 AM [facility] Total Protein 7.4 6.0 - 8.0 g/dL LAB CHEMISTRY METHOD 05/12/2024 10:53 AM [facility] Albumin 3.8 3.2 - 5.0 g/dL LAB CHEMISTRY METHOD 05/12/2024 10:53 AM [facility] Total Bilirubin 0.4 0.0 - 1.4 mg/dL LAB CHEMISTRY METHOD 05/12/2024 10:53 AM [facility] Blood Venous blood specimen / Unknown Venipuncture / Unknown 05/12/2024 9:48 AM EST 05/12/2024 10:11 AM EST us Shanna [facility] LAB BLOOD ORDERABLES Final Re sult [facility] [address] [place] [address], * [place] Extremity Nonvascular Limited Right (05/12/2024 [...] Signed Date: 05/12/2024 11:36 ET Workstation ID: [id number] Transcribed By: Self Edit Transcribed Date: 05/12/2024 [...] Signed Date: 05/12/2024 11:36 ET Workstation ID: [id number] Transcribed By: Self Edit Transcribed Date: 05/12/2024 11:34 ET Shanna [facility] IMG US PROCEDURES Final Resul t * XR Knee 4+ Views Right (05/12/2024 8:47 AM EST) Anatomical Region Laterality Modality Lower Extremities, Knee Right [facility] 05/12/2024 8:50 AM EST Impressions 05/12/2024 8:51 AM EST No acute fracture or malalignment. -------- FINAL REPORT -------- Dictated By: Saad Murphy Dictated Date: 05/12/2024 08:50 ET Assigned Physician: Saad Murphy Reviewed and Electronically Signed By: Saad Murphy Signed Date: 05/12/2024 08:51 ET Workstation ID: [id number] Transcribed By: Self Edit Transcribed Date: 05/12/2024 [...] Signed Date: 05/12/2024 08:51 ET Workstation ID: [id number] Transcribed By: Self Edit Transcribed Date: 05/12/2024 08:50 ET Shanna R Hevey PA IMG XR PROCEDURES Final Resul t from Last 3 Months Insurance [facility] Care Teams Commercial Manager Relationship Specialty Start Date End Date Allegra Londono MD [address] [place] [address] PCP - General Internal Medicine 05/20/20
== END 2024-07-20 11:27 | disposition home or self-care (01) ==
PROVIDERS: PCP Internal Medicine; Visit Provider Physician Assistant
DX: M70.51 Other bursitis of knee, right knee (principal)
CPT/HCPCS: 99203

== ENCOUNTER 2024-08-22 08:40 | Outpatient (REF) | payer BC, SELFPAY ==
--- NOTE | ~2024-08-22 | XR_ITS ---
EXAMINATION: XR HAND 3 OR MORE VIEWS LEFT HISTORY: M79.642 - Pain in left hand COMPARISON: There are no prior studies available for comparison. FINDINGS: Four views of the left hand are submitted. Osseous mineralization is normal. There is no fracture or dislocation. The joint spaces are preserved. The soft tissues are unremarkable. XR/XR hand LT min 3V IMPRESSION: Unremarkable examination of the left hand. Electronically signed by: Rm Vaughan MD 08/23/2024 07:59 AM EDT
== END 2024-08-22 08:41 | disposition home or self-care (01) ==
LOC: HO.HOSX 08:40
PROVIDERS: Visit Provider Orthopaedic Surgery
DX: M79.642 Pain in left hand (principal)
CPT/HCPCS: 73130

== ENCOUNTER → 2024-08-22 14:52 | Outpatient (AMB) | payer BC, SELFPAY ==
[2024-08-22 15:10] VITALS: BMI 25.1
--- NOTE | 2024-08-22 15:10 | A.OFFVIS_ITS ---
Vital Signs 08/22/24 15:10 Height 5 ft 8 in Weight 165 lb BMI 25.1 Intake Visit Reasons: New prob- Left hand/finger mass Intake Note: Anthony 54 yr old male presents today for a new problem visit for his left hand. States he has a mass on his left small finger for about 5 years and has increase in size. States he has had puss drained form his finger. States he has picked at it and it always comes back. States he has numbness and tingling in his ring and small finger only. EMG done 10/08/2022. Patient would like to discuss surgical intervention vs aspiration. Last A1c was taken 04/20/24- 11.8 IMPRESSION: 1. Vohm-ma-irihkjpx right median neuropathy across carpal tunnel. 2. Mild right ulnar neuropathy across cubital tunnel. Allergies No Known Allergies [No Known Allergies*] Allergy (Unknown, Verified 08/22/24 15:14) HPI HPI New prob- Left hand/finger mass: Details: Anthony is a 54 year old right hand dominant Diabetic man who presents with complaints of a left small finger D IP mass. He complains of a mass on his left small finger. He says this has been present for ~5 years now. This has been changing in size, and he often picks at it, but says it continues to return. He reports having some drainage from this mass in the past. He also complains of numbness and tingling in his left ring & small fingers. He says this just occurred this past weekend, and then resolved. He has right carpal & cubital tunnel syndrome. He denies any numbness today in clinic. He is a poorly controlled Diabetic & a smoker. His most recent HgA1c was 11.8% on 04/20/24. He is not interested in changing his diet or working on improving his Diabetes management. [facility] Medical History (Updated 08/22/24 @ 15:58 by Lauro Whitlock) Lesion of finger Numbness and tingling of right arm Noncompliance w/medication treatment due to intermit use of medication Smoker unmotivated to quit Family history of thyroid disease Exposure to COVID-19 virus Mixed dyslipidemia Type 2 diabetes mellitus with other diabetic kidney complication Essential hypertension Surgical History History of nasal surgery Abdominal hernia Family History Father No problems noted. Mother No problems noted. Paternal Grandfather Colon cancer Paternal Aunt Colon cancer Diabetes mellitus Brother No problems noted. Brother No problems noted. Sister No problems noted. Sister No problems noted. Sister No problems noted. Social History (Reviewed 08/22/24 @ 15:14 by Reina Carmona [facility]) Household Members: None Housing: House Alcohol intake: never Patient Tobacco Use Status: Current everyday Tobacco user Tobacco use type: Cigarette Cigarette Packs Per Day: 0.5 Cigarettes Per Day: 10.0 Years Smoked: 26 e-Cigarette/Vaping Use: Never Used Second Hand Smoke Exposure: Yes service: No Current occupational status: employed Current occupation: [employer] Cognitive needs: No Hearing needs: No Vision needs: No Review of Systems Const All systems reviewed & are unremarkable except as noted in HPI and below Physical Exam Vital Signs: BMI result Body Mass Index 25.1 Const General: cooperative, healthy appearing and no acute distress Orientation/consciousness: patient oriented x3 HEENT Head: Yes normocephalic and Yes atraumatic Eyes EOM: EOMs intact bilaterally Resp Effort & Inspection: normal respiratory effort and able to speak in complete sentences Cardio Jugular venous distension: no JVD Skin General skin exam: turgor normal Rashes: no rashes Neuro General: patient oriented x3 Extrem Other: Evaluation of Left Upper Extremity: The patient is alert, oriented, and in no acute distress Neuro: Median, Ulnar, Radial nerves motor and sensory intact bilaterally. He says numbness and tingling is only occasional. Vascular: Cap refill brisk ROM: He can make a fist and extend all his digits No locking or catching Skin: No lacerations or abrasions. General: No Ecchymosis. No Erythema or evidence of infection. He has a small finger mucous cyst with a healed wound over the top of the cyst, likely due to him picking at this. There is a Dupuytrens nodule in the left palm, with the beginning of a cord extending to the small finger. No contractures Radiographs: 3 views of the left hand were taken and viewed by me today in clinic. They show no fractures or dislocations. No radiographic masses seen in the small finger. Nerve Conduction Study: Right-side only IMPRESSION: 1. Orkr-jw-kiiuwnwv right median neuropathy across carpal tunnel. 2. Mild right ulnar neuropathy across cubital tunnel. Morro Rae MD 10/08/2022 Psych Appearance: grossly normal Affect: normal affect Attitude: cooperative Assessment & Plan Assessment & Plan (1) Digital mucous cyst of finger of left hand: Comment: SF Code(s): M67.442 - Ganglion, left hand Category: Medical (2) Smoker unmotivated to quit: Code(s): F17.200 - Nicotine dependence, unspecified, uncomplicated Category: Social Hx (3) Type 2 diabetes mellitus with other diabetic kidney complication: Code(s): E11.29 - Type 2 diabetes mellitus with other diabetic kidney complication Category: Medical (4) Cubital tunnel syndrome on right: Code(s): G56.21 - Lesion of ulnar nerve, right upper limb Category: Medical (5) Carpal tunnel syndrome of right wrist: Code(s): G56.01 - Carpal tunnel syndrome, right upper limb Category: Medical (6) 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 Left small finger mucous cyst Flat at this time with a healed wound over top from when it drained I educated him about this condition I discussed operative and non-operative treatment options I had a long discussion with him concerning his diabetes management He says he eats rice and beans and does not want to eat salad. He is not interested in managing his Diabetes or modifying his lifestyle When I explained that he would need to bring his hemoglobin A1c from 11.3 down to 8.0 before we considered possible operative management, he expressed that he felt this appointment was then a waste of time. He can follow up prn 2. Left hand Dupuytrens cord Extending to the small finger No evidence of contractures I educated him about this condition No treatment indicated at this time 3. Left hand numbness Symptoms resolving in the last few days 4. Right carpal tunnel syndrome, mild-moderate 5. Right cubital tunnel syndrome, mild Symptoms of numbness and tingling in both hands are only occasional, perhaps a couple of times a month. I educated him about numbness and tingling No treatment recommended at this time Scribed for China Naik, MD by Lauro Whitlock, medical office specialist, on 08/22/24 at 3:45 PM, EST. Orders: Orders XR hand LT min 3V Today M79.642 - Pain in left hand Coding Level of Care Code Est Pt Level 4 (70586) Diagnoses Digital mucous cyst of finger of left hand M67.442 Smoker unmotivated to quit F17.200 Type 2 diabetes mellitus with other diabetic kidney complication E11.29 Cubital tunnel syndrome on right G56.21 Carpal tunnel syndrome of right wrist G56.01 Dupuytren's disease of palm of left hand M72.0
== END ==
LOC: HO.HOS 14:53
PROVIDERS: PCP Internal Medicine; Visit Provider Orthopaedic Surgery
DX: M67.442 Ganglion, left hand (principal); G56.21 Lesion of ulnar nerve, right upper limb; G56.01 Carpal tunnel syndrome, right upper limb
CPT/HCPCS: 99214

== ENCOUNTER → 2024-08-22 15:01 | Outpatient (BNV) | payer BC, SELFPAY | PROVIDERS: Visit Provider Radiology Diagnostic Radiology | DX: M79.642 Pain in left hand (principal) | CPT/HCPCS: 73130 ==

== ENCOUNTER 2024-12-21 08:39 | Outpatient (REF) | payer BC, SELFPAY ==
--- OUTSIDE RECORDS SUMMARY | 2024-12-21 08:45 | XMS_ITS | Clinical Summary ---
Author Organization [facility] Address [address] [place] [address] Phone Care Team Providers Care Bank Consultant Name Role Phone Allegra Londono MD Primary Care Provider Allergies No known active allergies Medications No known medications Encounters Date Type Department Care Team Description 12/20/2024 1:31 AM EDT - 12/20/2024 5:12 AM EDT Emergency [facility] Emergency [address] [place] [address] Discharge Disposition: Home or Self Care from Last 3 Months Surgical History Surgery Date Site/Laterality Comments OTHER SURGICAL HISTORY PROCEDURE: [place] EXCISION NASAL POLYP SIMPLE CATARACT EXTRACTION PROCEDURE: [...] Sign Reading Time Taken Comments Blood Pressure 151/83 12/20/2024 1:43 AM EDT Pulse 80 12/20/2024 1:43 AM EDT Temperature 36.5 C (97.7 F) 12/20/2024 1:43 AM EDT Respiratory Rate 18 12/20/2024 1:43 AM EDT Oxygen Saturation 99% 12/20/2024 1:43 AM EDT Inhaled Oxygen Concentration - - Weight 74.4 kg (164 lb) 12/20/2024 1:43 AM EDT Height 172.7 cm (5' 8 ) 12/20/2024 1:43 AM EDT Body Mass Index 24.94 12/20/2024 1:43 AM EDT Plan of Treatment Health Maintenance Due Date Last Done Comments Diabetes: Annual Foot Exam 1979 Diabetes: Annual Retina Eye Exam 1979 Hepatitis B Vaccines (1 of 3 - 19+ 3-dose series) 1988 Pneumococcal Vaccine: 50+ Years (2 of 2 - PCV) 10/19/2015 10/18/2014, 09/21/2007 Cholesterol Screening (Lipid Panel) 05/10/2022 Colorectal Cancer Screening: Colonoscopy 05/10/2022 HIV Screening 05/10/2022 Hepatitis C Screening 05/10/2022 Social Influencers of Health Screening 05/10/2022 Diabetes: Annual Urine Albumin-Creatinine Ratio (uACR) 05/14/2022 COVID-19 Vaccine ( season) 2024 06/03/2023, 04/06/2022, 05/17/2021, Additional history exists Depression Screening 06/07/2024 Influenza Vaccine (#1) 2025 , 02/04/2023, 04/06/2022, Additional history exists Diabetes: Blood Sugar Control Test (HGBA1C) 04/28/2025 10/26/2024 Diabetes: Annual GFR (Glomerular Filtration Rate) 05/12/2025 05/12/2024 DTaP,Tdap,and Td Vaccines (4 - Td or Tdap) 08/30/2032 08/30/2022, 02/03/2018, 06/14/2007 Zoster Vaccines Completed 08/17/2023, 05/29/2023 HIB Vaccines Aged Out No longer eligi [...] age to complete this topic Meningococcal B Vaccine Aged Out No l onger eligible based on patient's age to complete this topic RSV Immunization Patients Under 20 months Aged Out No longer eligible based on patient's age to complete this topic Varicella Vaccines Aged Out No longer eligible based on patient's age to complete this topic Procedures Procedure Name Priority Date/Time Associated Diagnosis Comments POCT GLUCOSE BLOOD Routine 12/20/2024 1: 50 AM EDT ECG 12-LEAD STAT 12/20/2024 1:40 AM EDT ECG ANNOTATED 12/20/2024 COMPREHENSIVE METABOLIC PANEL STAT 05/12/2024 9:48 AM EST from Last 3 Months or Most Recently Relevant to Health Maintenance Results * (ABNORMAL) POCT Glucose, blood (12/20/2024 1:50 AM EDT) [facility] Glucose POCT 191(H) 70 - 100 mg/dL 12/20/2024 1:[address] [facility] Blood Capillary blood specimen / Unknown 12/20/2024 1:50 AM EDT 12/20/2024 1:52 AM EDT us Generic Provider Poct LAB POINT OF CARE TEST DOCKED DEVICE UNSOLICITED RESULTS Final Result [facility] [address] [place] [address], [place] [phone] * ECG 12 lead (12/20/2024 1:40 AM EDT) [facility] Ventricular Rate ECG 85 BPM GEMUSE Atrial Rate 85 BPM GEMUSE P-R Interval 200 ms GEMUSE QRS Duration 90 ms GEMUSE Q-T Interval 352 ms GEMUSE QTc 418 ms GEMUSE P Wave [place] 65 degrees GEMUSE R [place] 66 degrees GEMUSE T [place] 57 degrees GEMUSE ECG Interpretation Poor data quality, interpretation may be adversely affected Normal sinus rhythm Normal ECG When compared with ECG of 20-MAY-2022 22:38, Borderline criteria for Anterior infarct are no longer Present Confirmed by NIMA REILLY ([id number]) on 12/20/2024 10:17:49 AM GEMUSE 12/20/2024 1:40 AM EDT 12/20/2024 10:17 AM EDT Carlos Pena MD ECG ORDERABLES Final Result [facility] * ECG-Annotated (12/20/2024) Provider Onbase ECG ORDERABLES Final Result * (ABNORMAL) Comprehensive metabolic panel (05/12/2024 9:48 AM EST) [facility] Sodium 134 133 - 145 mmol/L LAB [...] [facility] Comment:Calculation based on the Chronic Kidney Disease Epidemiology Collaboration (CKD-EPI) equation refit without adjustment for race. BUN/Creatinine Ratio 15.1 LAB [...] [facility] BLOOD ORDERABLES Final Re sult [facility] [address] [place] [address], [place] [phone] from Last 3 Months or Most Recently Relevant to Health Maintenance Insurance [facility] Care Teams Bank Consultant Relationship Specialty Start Date End Date Allegra Londono MD [address] [place] [address] PCP - General Internal Medicine 05/20/20
[2024-12-21 10:45] LABS: Alanine Aminotransferase 16 U/L (0-40); Anion Gap 13 (12-20); Aspartate Amino Transferase 21 U/L (5-37); Blood Urea Nitrogen 11 mg/dL (9-16); Calcium 9.2 mg/dL (8.4-10.2); Carbon Dioxide 24 mmol/L (22-29); Chloride 107 mmol/L (96-108); Cholesterol 230 mg/dL (<200); Estimated Glomerular Filt Rate > 60; HDL Cholesterol 29 mg/dL (>40); Potassium 3.8 mmol/L (3.3-5.1); Sodium 140 mmol/L (135-145); Triglycerides 192 mg/dL (<150)
[2024-12-21 10:54] LABS: Hemoglobin A1C 310.4975 umol/L; Total Hemoglobin (HGBA1C) 3694.4092 umol/L
[2024-12-21 11:05] LABS: Microalbum/Creatinine Ratio Ur 138.2 ug/mg cr (<30)
== END 2024-12-21 08:40 | disposition home or self-care (01) ==
LOC: HO.HMGCLDS 08:39
PROVIDERS: PCP Internal Medicine; Visit Provider Internal Medicine
DX: I10 Essential (primary) hypertension (principal); R78.2 Finding of cocaine in blood; E11.29 Type 2 diabetes mellitus with other diabetic kidney complication
CPT/HCPCS: 36415; 80048; 80061; 82043; 82570; 83036; 84450; 84460

== ENCOUNTER 2024-12-25 12:13 | Outpatient (AMB) | payer BC, SELFPAY ==
--- OUTSIDE RECORDS SUMMARY | 2024-12-25 13:05 | XMS_ITS | Clinical Summary ---
Author Organization [facility] Address [address] [place] [address] Phone Care Team Providers Care Vice President Marketing & Development Name Role Phone Allegra Londono MD Primary Care Provider Allergies No known active allergies Medications No known medications Encounters Date Type Department Care Team Description 12/20/2024 1:31 AM EDT - 12/20/2024 5:12 AM EDT Emergency [facility] Emergency [address] [place] [address] Discharge Disposition: Home or Self Care from Last 3 Months Surgical History Surgery Date Site/Laterality Comments OTHER SURGICAL HISTORY PROCEDURE: [place] EXCISION NASAL POLYP SIMPLE CATARACT EXTRACTION PROCEDURE: [...] POCT Glucose, blood (12/20/2024 1:50 AM EDT) [facility] Glucose POCT 191(H) 70 - 100 mg/dL 12/20/2024 1:[address] [facility] Blood Capillary blood specimen / Unknown 12/20/2024 1:50 AM EDT 12/20/2024 1:52 AM EDT us Generic Provider Poct LAB POINT OF CARE TEST DOCKED DEVICE UNSOLICITED RESULTS Final Result [facility] [address] [place] [address], [place] [phone] * ECG 12 lead (12/20/2024 1:40 AM EDT) [facility] Ventricular Rate ECG 85 BPM GEMUSE Atrial Rate 85 BPM GEMUSE P-R Interval 200 ms GEMUSE QRS Duration 90 ms GEMUSE Q-T Interval 352 ms GEMUSE QTc 418 ms GEMUSE P Wave [place]arrison 65 degrees GEMUSE R [place] 66 degrees GEMUSE T [place] 57 degrees GEMUSE ECG Interpretation Poor data [...] Comprehensive metabolic panel (05/12/2024 9:48 AM EST) [facility] Sodium 134 133 - 145 mmol/L LAB CHEMISTRY METHOD 05/12/2024 10:[address] [facility] Potassium 4.8 3.5 - 5.5 mmol/L LAB CHEMISTRY METHOD 05/12/2024 10:[address] [facility] Chloride 104 96 - 110 mmol/L LAB CHEMISTRY METHOD 05/12/2024 10:[address] [facility] CO2 26 21 - 32 mmol/L LAB CHEMISTRY METHOD 05/12/2024 10:[address] [facility] Anion Gap 4 3 - 11 LAB CHEMISTRY METHOD 05/12/2024 10:[address] [facility] Glucose 522(HH) 70 - 100 mg/dL LAB CHEMISTRY METHOD 05/12/2024 10:[address] [facility] BUN 16 5 - 25 mg/dL LAB CHEMISTRY METHOD 05/12/2024 10:[address] [facility] Creatinine 1.06 0.70 - 1.30 mg/dL LAB CHEMISTRY METHOD 05/12/2024 10:[address] [facility] eGFR 83 >=60 mL/min/1. 73m2 LAB CHEMISTRY METHOD 05/12/2024 10:[address] [facility] Comment:Calculation based on the Chronic Kidney Disease Epidemiology Collaboration (CKD-EPI) equation refit without adjustment for race. BUN/Creatinine Ratio 15.1 LAB CHEMISTRY METHOD 05/12/2024 10:[address] [facility] Calcium 9.1 8.5 - 10.5 mg/dL LAB CHEMISTRY METHOD 05/12/2024 10:[address] [facility] AST (SGOT) 13 10 - 42 unit/L LAB CHEMISTRY METHOD 05/12/2024 10:[address] [facility] ALT (SGPT) 22 10 - 60 unit/L LAB CHEMISTRY METHOD 05/12/2024 10:[address] [facility] Alkaline Phosphatase 151(H) 42 - 121 unit/L LAB CHEMISTRY METHOD 05/12/2024 10:[address] [facility] Total Protein 7.4 6.0 - 8.0 g/dL LAB CHEMISTRY METHOD 05/12/2024 10:[address] [facility] Albumin 3.8 3.2 - 5.0 g/dL LAB CHEMISTRY METHOD 05/12/2024 10:[address] [facility] Total Bilirubin 0.4 0.0 - 1.4 mg/dL LAB CHEMISTRY METHOD 05/12/2024 10:[address] [facility] Blood Venous blood specimen / Unknown Venipuncture / Unknown 05/12/2024 9:48 AM EST 05/12/2024 10:11 AM EST us Shanna [facility] BLOOD ORDERABLES Final Re sult [facility] [address] [place] [address], [place] [phone] from Last 3 Months or Most Recently Relevant to Health Maintenance Insurance [facility] Care Teams Vice President Marketing & Development Relationship Specialty Start Date End Date Allegra Londono MD [address] [place] [address] PCP - General Internal Medicine 05/20/20
--- OUTSIDE RECORDS SUMMARY | 2024-12-25 13:05 | XMS_ITS | Clinical Summary ---
Author Organization [facility] Address [address] [place] [phone] Phone Care Team Providers Care Behavioral Scientist Name Role Phone Allegra Londono MD Primary Care Provider Allergies No known active allergies Medications metFORMIN (GLUCOPHAGE) 500 MG tablet Take 1,000 mg by mouth 2 (two) times a day with meals. Active metFORMIN (GLUCOPHAGE-XR) 500 MG 24 hr tablet Take 1,000 mg by mouth 2 (two) times a day. Active lisinopril (PRINIVIL,ZESTRI L) 10 MG tablet Take 10 mg by mouth daily. Active atorvastatin (LIPITOR) 40 MG tablet Take 40 mg by mouth daily. Active aspirin 81 mg chewable tablet Take 81 mg by mouth daily. Active omeprazole (PRILOSEC) 20 MG capsule Take 20 mg by mouth daily. Active pioglitazone (ACTOS) 15 MG tabletIndication s:Type 2 diabetes mellitus with diabetic nephropathy, without long-term current use of insulin Take 1 tablet (15 mg total) by mouth daily. 90 tablet 1 10/27/19 25 Active lancets 28 gauge MiscIndications: Type 2 diabetes mellitus with diabetic nephropathy, without long-term current use of insulin 1 each by Miscellaneous route every morning. 100 each 3 10/27/19 25 Active FREESTYLE LITE METER meter kitIndications:T ype 2 diabetes mellitus with diabetic nephropathy, without long-term current use of insulin Use as instructed 1 kit 10/27/19 25 Active FREESTYLE LITE Strp stripsIndication s:Type 2 diabetes mellitus with diabetic nephropathy, without long-term current use of insulin 1 each by Miscellaneous route every morning. 100 strip 3 10/27/19 25 Active insulin pen needles, disposable, 32 gauge x 5/32 NdleIndications: Type 2 diabetes mellitus with diabetic nephropathy, without long-term current use of insulin,Type 2 diabetes mellitus with diabetic polyneuropathy, without long-term current use of insulin,Type 2 diabetes mellitus with hyperglycemia, without long-term current use of insulin 1 each by Miscellaneous route every morning. 100 each 3 10/27/19 25 Active insulin glargine-yfgn (SEMGLEE,INSULIN GLARG-YFGN,PEN) 100 unit/mL (3 mL) subcutaneous pen Inject 25 Units under the skin daily. 30 mL 1 10/27/19 25 Active Active Problems Problem Noted Date Diagnosed Date Type 2 diabetes mellitus wit h diabetic nephropathy, without long-term current use of insulin 10/26/2024 Assessment & Plan (10/26/2024 9:24 AM EDT): Uncontrolled. Hemoglobin A1c 12.12%. Because his hemoglobin A1c is above 9% he should be using MDI insulin therapy. He states he is afraid of needles. So at this point I have prescribed Toujeo U300 25 units daily. I told him that if he is not able to pay for this insulin he needs to let me know because the other incident that appeared to be covered was Semglee. Lantus does not seem to be preferred neither is Tresiba. I have not prescribed short acting insulin because he is likely not going to use it at this stage so instead I prescribed pioglitazone 15 mg daily. This is an insulin impregnator and drier helper and will help. He should continue metformin. In the future we can try prescribing Mounjaro again and see if there is a better coverage. Type 2 diabetes mellitus wit h diabetic polyneuropathy, without long-term current use of insulin 10/26/2024 Type 2 diabetes mellitus wit h hyperglycemia, without long-term current use of insulin 10/26/2024 Hyperlipidemia LDL goal <100 10/26/2024 Assessment & Plan (10/26/2024 9:37 AM EDT): He is using atorvastatin I do not have a lipid panel requested lipid panel to be done fasting prior to the follow-up visit. Encounters Date Type Department Care Team Description 10/26/2024 8:50 AM EDT Office Visit [facility] [address] [place] [address] [place] [address] Mono Liz, Type 2 diabetes mellitus with diabetic nephropathy, without long-term current use of insulin (Primary Dx); Type 2 diabetes mellitus with diabetic polyneuropathy, without long-term current use of insulin; Type 2 diabetes mellitus with hyperglycemia, without long-term current use of insulin; Hyperlipidemia LDL goal <100 10/26/2024 Refill [facility] [address] [place] [address] Mono Liz DO Med Change Request from Last 3 Months Family History Medical History Relation Comments Cancer Brother Diabetes Paternal Aunt Cancer Paternal Uncle Relation Status Comments Brother Paternal Aunt Paternal Uncle Social History Tobacco Use Types Packs/Day Years Used Date Smoking Tobacco: Every Day Cigarettes Smokeless Tobacco: Never Tobacco Cessation:Ready to Q uit: Not Asked; Counseling Given: Not Answered Alcohol Use Standard Drinks/Week Comments Never 0 (1 standard drink = 0.6 oz pur e alcohol) Education Answer Date Recorded Are you interested in more education? Not on burton e 05/26/2024 Are you concerned about learning? Not on file 05/26/2024 No 05/26/2024 No 05/26/2024 Digital Access Answer Date Recorded No 05/26/2024 No 05/26/2024 Reliable internet access at home? Not on file 05/26/2024 Device with a working camera? Not on file Sex and Gender Information Value Date Recorded Sex Assigned at Not on file Legal Sex Male 8:50 AM EST Gender Identity Not on file Sexual Orientation Not on file Last Filed Vital Signs Vital Sign Reading Time Taken Comments Blood Pressure 116/70 10/26/2024 8:38 AM EDT Pulse 101 10/26/2024 8:38 AM EDT Temperature - - Respiratory Rate - - Oxygen Saturation 97% 10/26/2024 8:38 AM EDT Inhaled Oxygen Concentration - - Weight 73.9 kg (163 lb) 10/26/2024 8:38 AM EDT Height 170.4 cm (5' 7.1 ) 10/26/2024 8:38 AM EDT Body Mass Index 25.45 10/26/2024 8:38 AM EDT Plan of Treatment Upcoming Encounters Date Type Department Care Team (Late st Contact Info) Description 02/08/2025 9:50 AM EDT Office Visit [facility] [address] [place] [phone] Mono Liz DO [address] [place] [phone] [email or web address] Manager Health Maintenance Due Date Last Done Comments Adult Td,Tdap Booster 1969 CREATININE LEVEL 1969 POTASSIUM LEVEL 1969 DEPRESSION SCREENING 1981 SMOKING Hx and SMOKELESS TOB ACCO SCREENING 1982 HEPATITIS C SCREENING 1987 HIV ONE-TIME SCREENING (18-6 5 YEARS) 1987 PNEUMOCOCCAL VACCINES (50+ y ears) (1 of 2 - PCV) 1988 COLOGUARD 2014 COLONOSCOPY 2014 COLORECTAL CANCER SCREENING 2014 FIT TEST 2014 FOBT 2014 SIGMOIDOSCOPY 2014 VIRTUAL COLONOSCOPY 2014 ZOSTER VACCINES (1 of 2) 2019 COVID-19 VACCINE (1 - 2023-2 5 season) 2024 DIABETIC EYE EXAM 10/26/2024 HEMOGLOBIN A1C 01/26/2025 10/26/2024 BLOOD PRESSURE 04/28/2025 10/26/2024 HEPATITIS A VACCINES Aged Out No long er eligible based on patient's age to complete this topic HIB VACCINES Aged Out No longer eligi ble based on patient's age to complete this topic MENINGOCOCCAL VACCINES (ACWY) Aged Out No longer eligible based on patient's age to complete this topic MENINGOCOCCAL VACCINES (B) Aged Out N o longer eligible based on patient's age to complete this topic Medical Devices Not on file Procedures Procedure Name Priority Date/Time Associated Diagnosis Comments POCT HEMOGLOBIN A1C Routine 10/26/2024 9 :11 AM EDT Type 2 diabetes mellitus with diabetic nephropathy, without long-term current use of insulin from Last 3 Months Results * (ABNORMAL) POCT Hemoglobin A1c (10/26/2024 9:11 AM EDT) Hemoglobin A1c 12.2(A) 4.2 - 5.6 % Other 10/26/2024 9:11 AM EDT Mono Liz DO POINT OF CARE TEST ORDERABLES Fi nal Result from Last 3 Months Insurance [employer] OUT OF STATE PPO BLUE [employer] OUT OF STATE PPO BLUE [employer] OUT OF STATE PPO BLUE [employer] OUT OF STATE PPO BLUE [employer] OUT OF STATE PPO BLUE [employer] OUT OF STATE PPO Care Teams Behavioral Scientist Relationship Specialty Start Date End Date Allegra Londono MD PCP - General Internal Medicine 05/24/24 Additional Source Comments The information contained in this document represents components of the legal health record. It is not the complete legal health record.[facility]
[2024-12-25 13:24] VITALS: BP 126/80; PULSE 90; RESP 16; TEMP 36.6; O2SAT 98; BMI 23.9
--- NOTE | 2024-12-25 13:24 | A.OFFPC_ITS ---
Vital Signs 12/25/24 13:24 Height 5 ft 8 in Weight 157 lb BMI 23.9 BP 126/80 Blood Pressure Location Lt brachial Position Sitting Respiration 16 Pulse 90 Pulse Source Pulse Oximeter Temp 97.8 F Temp Source Oral Pulse Oximetry (%) 98 Oxygen Delivery Method Room Air Intake Visit Reasons: Annual PE Intake Note: Pt is here today for his PE Allergies No Known Allergies (No Known Allergies*) Allergy (Unknown, Verified 12/25/24 13:50) Medication List - Last Reconciled 12/25/24 by Allegra Londono MD aspirin 81 mg PO DAILY atorvastatin 40 mg PO DAILY blood sugar diagnostic (FreeStyle Lite Strips) Check fasting blood sugar twice a day a.m. and p.m. blood-glucose meter (FreeStyle Lite Meter kit) As directed lancets (FreeStyle Lancets) As directed checks 2 times a day lisinopril 10 mg PO DAILY metformin ER 1,000 mg (2 x 500 mg) PO BID omeprazole 20 mg PO DAILY pen needle, diabetic (BD Ultra-Fine Mini Pen Needle) use once a day As directed sodium,potassium,mag sulfates 17.5-3.13-1.6 gram (Suprep Bowel Prep Kit) DILUTE; drink 1/2 at 6-8 pm and half at 11 PM- 1AM Tobacco use date assessed: 12/25/24 Dental Screening Dental Screen Date: 12/25/24 Did you have a dental visit in the last 12 months?: Yes Did you have a dental problem in the last 6 months where you did not have access to dental care?: No Was dental information given to patient?: Patient has dentist HPI Annual PE HPI Details - The patient is a 54-year-old male wit h history of diabetes mellitus, poorly controlled, hypertension, hyperlipidemia, presenting jadyn for his physical exam - he currently goes to [facility] endocrinology clinic with Dr. Liz for treatment of his Diabetes mellitus. Patient states however that he has stopped taking all the medicines that he was prescribed stating that he could not afford his prescriptions. He states that he feels better off the medications for his diabetes. He has a follow-up appointment with his adjudication specialist next month, encouraged due keep it. He also has retinopathy already do poorly controlled longstanding diabetes mellitus a - The alpa homer has a history of hyperten yadiel, which is currently well- controlled. - Has chronic kidney disease due to unde rlying poorly controlled diabetes mellitus - The patient has experienced significan t weight loss, through diet and exercise. - Preventative care includes a scheduled colonoscopy and recommended eye examination. - Vaccinations are up to date, including shingles and tetanus, with a COVID-19 booster discussed. Patient states that he has been having frequent episodes of mood swings and depression this past few months, feels overwhelmed with all his medical issues and demands of his job. - [facility] Medical History (Updated 12/25/24 @ 14:17 by Allegra Londono MD) Depression Lesion of finger Numbness and tingling of right arm Noncompliance w/medication treatment due to intermit use of medication Smoker unmotivated to quit Family history of thyroid disease Exposure to COVID-19 virus Mixed dyslipidemia Type 2 diabetes mellitus with other diabetic kidney complication Essential hypertension Surgical History History of nasal surgery Abdominal hernia Family History Father No problems noted. Mother No problems noted. Paternal Grandfather Colon cancer Paternal Aunt Colon cancer Diabetes mellitus Brother No problems noted. Brother No problems noted. Sister No problems noted. Sister No problems noted. Sister No problems noted. Social History Household Members: None Housing: House Alcohol intake: never Patient Tobacco Use Status: Current everyday Tobacco user Tobacco use type: Cigarette Cigarette Packs Per Day: 0.5 Cigarettes Per Day: 10.0 Years Smoked: 26 e-Cigarette/Vaping Use: Never Used Second Hand Smoke Exposure: Yes service: No Current occupational status: employed Current occupation: [employer] Cognitive needs: No Hearing needs: No Vision needs: No Questionnaire PHQ-9 Over the last 2 weeks, how often have you been bothered by any of the following problems? 1. Little interest or pleasure in doing things: more than half the days 2. Feeling down, depressed, or hopeless: more than half the days 3. Trouble falling or staying asleep, or sleeping too much: more than half the days 4. Feeling tired or having little energy: more than half the days 5. Poor appetite or overeating: more than half the days 6. Feeling bad about yourself - or that you are a failure or have let yourself or your family down: more than half the days 7. Trouble concentrating on things, such as reading the newspaper or watching television: more than half the days 8. Moving or speaking so slowly that other people could have noticed. Or the opposite - being so fidgety or restless that you have been moving around a lot more than usual: not at all 9. Thoughts that you would be better off or of hurting yourself in some way: not at all Total score: 14 Depression Screening Interpretation: Positive (Referred to our mental health coordinator toassist in getting Psychiatry and therapist) Depression Screening Done: Yes 00804 - PHQ-9 Billing: Yes Source: Developed by Drs. Rm Aguirre, Mirta Mckenzie, Paul Gonzales and colleagues, with an educational junior from [employer]. Thrive Questionnaire Date Thrive assessed: 08/04/24 I am a: Patient What is your living situation today?: I have a steady place to live Within the past 12 months, did the food you bought not last and you didn't have the money to get more?: I choose not to answer this question Within the past 12 months, did you worry whether your food would run out before you got money to buy more?: I choose not to answer this question Do you have trouble paying for medicines?: Yes Do you have trouble getting transportation to medical appointments?: No Do you have trouble paying your heating and electricity bill?: No Do you have trouble taking care of your child, family member or friend?: No Do you have trouble with day-to-day activities such as bathing, preparing meals, shopping, managing finances, etc.?: No Are you currently unemployed and looking for a job?: No Are you interested in more education?: No Please select the resources that you would like help with: Paying for medicine Currently or been in a relationship where the following occur: I choose not to answer THRIVE Score: 0 AUDIT C Alcohol Use Questionnaire (AUDIT-C) 1. How often do you have a drink containing alcohol?: Never Total Score: 0 Score Reviewed/Action Taken: Yes SARATH-7 AMB Questionnaire SARATH-7 Date SARATH - 7 assessed: 12/25/24 Feeling nervous, anxious, or on edge: 0 = Not at all Not being able to stop or control worryin = Not at all Worrying too much about different things: 0 = Not at all Trouble relaxin = Not at all Being so restless that it is hard to sit still: 0 = Not at all Becoming easily annoyed or irritable: 0 = Not at all Feeling afraid as if something awful might happen: 0 = Not at all Total SARATH-7 score (0-4 normal; 5-9 mild; 10-14 moderate; 15-21 severe): 0 Source: Developed by Drs. Rm Aguirre, Mirta Mckenzie, Paul Gonzales and colleagues, with an educational junior from [employer]. SARATH-7 Assessment Billing SARATH-7 Assessment Tool: SARATH-7 Assessment 91476 Review of Systems Const Reports fatigue, Denies fever(s), Denies headache(s), Denies lethargy and Denies malaise Eyes Reports blurry vision ENT Reports Normal hearing present, Denies dizziness and Denies headache(s) Card Denies chest pain, Denies rapid heart rate, Denies lightheadedness and Denies dyspnea Resp Denies chest congestion, Denies cough and Denies dyspnea GI Denies abdominal pain, Denies belching, Denies melena, Denies bloating, Denies change in bowel habits, Denies dyspepsia, Denies heartburn and Denies nausea Denies difficulty urinating, Reports erectile dysfunction, Denies dysuria and Denies penile discharge Musc Denies stiffness Skin/Breast Denies lesions and Denies rash Neuro Reports no additional complaints, Reports Normal hearing present, Denies dizziness, Denies headache(s), Denies Sensory deficit (Neuro) and Denies paresthesias Psych Reports no additional complaints Endo Reports fatigue, Reports polydipsia and Reports polyuria Osvaldo/Lymph Reports no additional complaints Aller/Immun Reports no additional complaints Physical exam (Primary Care) Vital Signs: Last Vital Signs Temp 97.8 F 12/25/24 13:24 Pulse 90 12/25/24 13:24 Resp 16 12/25/24 13:24 BP 126/80 12/25/24 13:24 Pulse Ox 98 12/25/24 13:24 Oxygen Delivery Method Room Air 12/25/24 13:24 BMI result Body Mass Index 23.9 Tobacco/Smoking Status: Tobacco use Status Tobacco use date assessed 12/25/24 12/25/24 13:30 Patient Tobacco Use Status Current everyday Tobacco 12/25/24 13:30 Tobacco use type Cigarette 12/25/24 13:30 e-Cigarette/Vaping Use Never Used 12/25/24 13:30 Are you ready to quit: No PHQ-9: PHQ-9 Score PHQ-9: Total score 14 12/25/24 13:51 Depression Screening Interpretation: Positive (Referred to our mental health coordinator toassist in getting Psychiatry and therapist) Thrive Assessment: Date of Thrive Assessment Date Thrive assessed 08/04/24 12/25/24 13:30 Currently or been in a relationship where the following occur: I choose not to answer Const Other: Alert oriented x3, no acute distress noted, ambulatory normal gait Orientation/consciousness: patient oriented x3 HENMT Mouth: Normal oral and palatal mucosa present, oropharynx normal and moist mucous membranes Eyes General: appearance normal, both eyes and all related structures Neck Neck: Yes full ROM, Yes no lymphadenopathy and Yes supple Resp Auscultation: clear to auscultation bilaterally Cardio Other: S1-S2 present regular rate and rhythm GI Palpation (GI): Soft to palpation, nontender, no guarding and no masses General: Yes no CVA tenderness Back/Spine/Pelvis Back: no CVA tenderness and No back tenderness Skin Other: Raised round lesion on dorsal aspect of left 5th finger Neuro General: patient oriented x3, gait normal, tone normal, moves all extremities, Normal light touch and pain sensation, no focal motor deficits, CN's II-XI intact bilaterally and normal sensation to monofilament Cranial nerves: Yes Normal hearing present Sensory Exam: No Sensory deficit (Neuro) Extrem General: Yes full ROM, Yes no joint enlargement, Yes no pedal edema and Yes normal gait Psych Appearance: grossly normal and well kempt Mental Status: mental status grossly normal Speech and movement: Pressured speech present Affect: Sad affect present Results Reviewed Results Reviewed: Laboratory Tests 12/21/24 08:54 Estimat Average Glucose 235 Hemoglobin A1c % 9.8 H Urine Creatinine 148.98 Urine Microalbumin 206.0 Microalb/Creat Ratio 138.2 H Name: Anthony Maldonado Age/Sex: 54/M : 1970 Unit#: [id number] Attend Dr: Allegra Londono MD Re12/21/24 Status: DEP REF Location: [facility] Disch: SPEC : [id number] PAUL: 12/21/24 STATUS: COMP REQ : [id number] RECD: 12/21/[address]: Allegra Londono MD COMP: 12/21/24 ENTERED: 12/21/24 [facility] DR: ORDERED: Met Prof Fast, AST, ALT, Lipid Panel Test Result Flag Reference Sodium 140 135-145 mmol/L Potassium 3.8 # 3.3-5.1 mmol/L CL 107 96-108 mmol/L CO2 24 22-29 mmol/L Gap 13 12-20 BUN 11 9-16 mg/dL Creat 0.69 0.5-1.4 mg/dL eGFR > 60 Chronic Kidney Disease: Estimated GFR < 60 mL/min/1.73m2 Severe Kidney Disease: Estimated GFR < 15 mL/min /1.73m2 FBS 158 H 60-99 mg/dL A fasting glucose of 126 mg/dl or greater on more than one occasion is considered diagnostic of diabetes. CA 9.2 # 8.4-10.2 mg/dL AST (GOT) 21 5-37 U/L ALT (GPT) 16 0-40 U/L Triglyceride 192 H <150 mg/dL Desirable Triglyceride: less than 150 mg/dL Borderline High Triglyceride 150-199 mg/dL High Triglyceride: 200-499 mg/dL Very High Triglyceride: greater than or equal to 5OO mg/dL Cholesterol 230 H <200 mg/dL Desirable Cholesterol: less than 200 mg/dL Borderline High Cholesterol: 200-239 mg/dL High Cholesterol: greater than 239 mg/dL LDL Calculated 163 H <100 mg/dL Desirable LDL: less than 100 mg/dL Near Optimal/Above Optimal LDL: 110-129 mg/dL Borderline High LDL: 130-159 mg/dL High LDL: 160-189 mg/dL Very High LDL: greater than or equal to 190 mg/dL HDL 29 L >40 mg/dL Desirable HDL: greater than 40 mg/dL Note: This HDL assay may give artificially low results in patients with liver disease. Coding Level of Care Code Est Pt Prev Care 40-64y(48024) Diagnoses Type 2 diabetes mellitus with other diabetic kidney complication E11.29 Essential hypertension I10 Mixed dyslipidemia E78.2 Smoker unmotivated to quit F17.200 Annual visit for general adult medical examination with abnormal findings Z00.01 Depression F32.A Additional Codes SARATH-7 Assessment Billing - SARATH-7 Assessment Tool: SARATH-7 Assessment 57132 ([id number]) PHQ-9 - 20566 - PHQ-9 Billing: Yes ([id number]) Assessment & Plan Assessment & Plan (1) Type 2 diabetes mellitus with other diabetic kidney complication: Code(s): E11.29 - Type 2 diabetes mellitus with other diabetic kidney complication Category: Medical Plan: Stressed importance of being compliant with taking his medications, and adhering to recommended diet. Reminded patient to keep appointment with his adjudication specialist next month and make sure to forced all his concerns about his medications. Advised to try getting his medicines via the [employer] program or downloading pharmaceutical coupons for each of his medications that he can use to offset the cost. Stressed importance of getting his yearly diabetes retinopathy screening and podiatry evaluation. Up-to-date with all his vaccines. Continue metformin, will try again on Trulicity 0.75 mg once a week (2) Essential hypertension: Code(s): I10 - Essential (primary) hypertension Category: Medical Plan: Blood pressure stable and controlled on present treatment. Continue lisinopril 10 mg daily (3) Mixed dyslipidemia: Code(s): E78.2 - Mixed hyperlipidemia Category: Medical Plan: Fasting lipids showed elevated triglycerides and LDL cholesterol. Continue on atorvastatin 40 mg daily, adherence to recommended diet strongly advised. (4) Smoker unmotivated to quit: Code(s): F17.200 - Nicotine dependence, unspecified, uncomplicated Category: Social Hx Plan: Patient strongly advised to stop smoking, as smoking damages blood vessels, d egenerative of joints and spine, damage to lungs and heart., predisposes to developing certain cancers like lung, breast, bladder, colon. Recommended to try decreasing cigarette use by 1-2 cigarettes a day. Advised to monitor what triggers are for smoking so that this can be discussed on the next office visit. We can discuss different options to quit smoking when ready. (5) Annual visit for general adult medical examination with abnormal findings: Code(s): Z00.01 - Encounter for general adult medical examination with abnormal findings Plan: Reviewed recent fasting lab results with patient.. Recommended dental visit every 6 months and and annual eye exams for diabetes retinopathy screening and follow-up . Take adequate calcium in diet and vitamin-D 3 at 2000 IU per cap once a day, in addition to weight-bearing exercises to help maintain good muscle tone and weight control. Instructed to do self-testicular exam check for any mass. Scheduled already for his colonoscopy at [facility] clinic next month (6) Depression: Code(s): F32.A - Depression, unspecified Category: Medical Plan: Referred to our pads a health worker, Dinah to help patient with getting in to be seen by Psychiatry and therapist. Started on sertraline 50 mg per tablet, advised to start taking initially 25 mg once a day for the 1st week, and may increase dose to 50 mg or 1 tablet once a day on the 2nd week if he feels that he needs to increase his dose. See him back for follow-up in 4 weeks Medications: New sertraline Take initially half a tablet or 25 mg once a day for the 1st week and then increase it to a whole tablet or 50 mg daily after 50 mg PO DAILY 30 tabs 1RF F32.A - Depression, unspecified dulaglutide (Trulicity) 0.75 mg (0.5 mL) subcut QWEEK 2 mL 5RF E11.29 - Type 2 diabetes mellitus with other diabetic kidney complication Refilled lisinopril 10 mg PO DAILY 90 tabs 1RF I10 - Essential (primary) hypertension omeprazole 20 mg PO DAILY 90 caps 1RF atorvastatin 40 mg PO DAILY 90 tabs 1RF
== END 2024-12-25 14:38 | disposition home or self-care (01) ==
LOC: HO.HMCC 12:14
PROVIDERS: PCP Internal Medicine; Visit Provider Internal Medicine
DX: E11.29 Type 2 diabetes mellitus with other diabetic kidney complication (principal); I10 Essential (primary) hypertension; E78.2 Mixed hyperlipidemia; F17.200 Nicotine dependence, unspecified, uncomplicated; Z00.01 Encounter for general adult medical examination with abnormal findings; F32.A Depression, unspecified

== ENCOUNTER → 2024-12-25 12:13 | Outpatient (BNVA) | payer BC, SELFPAY | PROVIDERS: PCP Internal Medicine; Visit Provider Internal Medicine | DX: Z00.01 Encounter for general adult medical examination with abnormal findings (principal); E11.29 Type 2 diabetes mellitus with other diabetic kidney complication; I10 Essential (primary) hypertension; E78.5 Hyperlipidemia, unspecified; E78.2 Mixed hyperlipidemia; F17.200 Nicotine dependence, unspecified, uncomplicated; F32.A Depression, unspecified | CPT/HCPCS: 96127 ==